=== PATIENT | female | born 1960 | race Caucasian/White ===

== ENCOUNTER → 2016-07-23 | Outpatient (REF) | payer OTHER ==
[2016-07-23 16:29] LABS: BASO % 0.6 % (0.0-1.0); EOS # 0.1 K/mm3 (0.0-0.50); EOS % 2.2 % (0.0-3.0); LYMPH # 1.9 K/mm3 (1.5-4.5); MEAN CORPUSCULAR HEMOGLOBIN 32.9 pg (27.0-33.0); MEAN CORPUSCULAR HGB CONC 31.9 g/dl (32.0-36.5); MEAN CORPUSCULAR VOLUME 103.2 fl (80.0-96.0); MONO # 0.3 K/mm3 (0.0-0.8); MONO % 5.2 % (0.0-5.0); NEUTROPHILS # 3.8 K/mm3 (1.8-7.7); NEUTROPHILS % 61.7 % (36.0-66.0); RED CELL DISTRIBUTION WIDTH 13.2 % (11.5-14.5); WHITE BLOOD COUNT 6.1 K/mm3 (4.0-10.0)
[2016-07-23 16:37] LABS: ALBUMIN 3.9 GM/DL (3.2-5.2); ALKALINE PHOSPHATASE 107 U/L (45-117); ALT/SGPT 33 U/L (12-78); ANION GAP 6 MEQ/L (8-16); AST/SGOT 18 U/L (15-37); BILIRUBIN,TOTAL 0.4 MG/DL (0.2-1.0); BLOOD UREA NITROGEN 23 MG/DL (7-18); CALCIUM LEVEL 9.2 MG/DL (8.5-10.1); CARBON DIOXIDE LEVEL 26 MEQ/L (21-32); CHLORIDE LEVEL 110 MEQ/L (98-107); CHOLESTEROL LEVEL 226 MG/DL (<200); CREATININE FOR GFR 0.86 MG/DL (0.55-1.02); GLOMERULAR FILTRATION RATE > 60.0 (>51); GLUCOSE, FASTING 92 MG/DL (70-105); POTASSIUM SERUM 4.8 MEQ/L (3.5-5.1); SODIUM LEVEL 142 MEQ/L (136-145); TOTAL PROTEIN 6.5 GM/DL (6.4-8.2); TRIGLYCERIDES LEVEL 55 MG/DL (<150)
== END ==
LOC: M LABDRAW1 16:03
PROVIDERS: ATTEND Physician Assistant Medical
DX: E78.00 Pure hypercholesterolemia, unspecified (principal)

== ENCOUNTER → 2016-07-24 | Outpatient (CLI) | payer BC, OTHER ==
--- NOTE | 2016-07-25 09:39 | ECGEPIP ---
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
== END ==
LOC: M EKG 08:58
PROVIDERS: ATTEND Physician Assistant Medical
DX: E78.2 Mixed hyperlipidemia (principal); R94.31 Abnormal electrocardiogram [ECG] [EKG]

== ENCOUNTER → 2016-09-23 | Outpatient (CLI) | payer BC, OTHER ==
[2016-09-23 16:50] LABS: BASO % 0.3 % (0.0-1.0); EOS # 0.1 K/mm3 (0.0-0.50); EOS % 1.7 % (0.0-3.0); LYMPH # 2.3 K/mm3 (1.5-4.5); LYMPH % 37.1 % (24.0-44.0); MEAN CORPUSCULAR HEMOGLOBIN 34.3 pg (27.0-33.0); MEAN CORPUSCULAR VOLUME 100.7 fl (80.0-96.0); MONO # 0.4 K/mm3 (0.0-0.8); MONO % 5.9 % (0.0-5.0); NEUTROPHILS # 3.2 K/mm3 (1.8-7.7); NEUTROPHILS % 52.8 % (36.0-66.0); RED CELL DISTRIBUTION WIDTH 12.8 % (11.5-14.5); WHITE BLOOD COUNT 6.1 K/mm3 (4.0-10.0)
[2016-09-23 19:53] LABS: ALBUMIN/GLOBULIN RATIO 1.38 (1.00-1.93); ALKALINE PHOSPHATASE 105 U/L (45-117); ALT/SGPT 44 U/L (12-78); AMYLASE 44 U/L (25-115); ANION GAP 8 MEQ/L (8-16); AST/SGOT 25 U/L (15-37); BILIRUBIN,TOTAL 0.5 MG/DL (0.2-1.0); BLOOD UREA NITROGEN 16 MG/DL (7-18); CARBON DIOXIDE LEVEL 25 MEQ/L (21-32); CHLORIDE LEVEL 110 MEQ/L (98-107); CREATININE FOR GFR 0.78 MG/DL (0.55-1.02); GLOMERULAR FILTRATION RATE > 60.0 (>51); GLUCOSE, FASTING 76 MG/DL (70-105); POTASSIUM SERUM 3.8 MEQ/L (3.5-5.1); SODIUM LEVEL 143 MEQ/L (136-145); TOTAL PROTEIN 6.9 GM/DL (6.4-8.2)
== END ==
LOC: M LAB 15:28
PROVIDERS: ATTEND Physician Assistant Medical
DX: R10.84 Generalized abdominal pain (principal); R63.5 Abnormal weight gain

== ENCOUNTER → 2016-09-25 | Outpatient (CLI) | payer BC, OTHER ==
--- NOTE | 2016-09-25 09:47 | REP ---
Clinical: Left upper abdominal pain. Technique: Real time marc scale and color evaluation using curved array transducer. Findings: Ultrasound examination of the left upper quadrant demonstrates normal size, contour, echogenicity to the spleen without focal splenic lesion. The bladder is normal in appearance and reniform shape without hydronephrosis, nephrolithiasis, cystic or mass lesion. No ascites visualized in the left upper quadrant. Spleen measures 8.8 x 2.8 x 3.6 cm. Left kidney measures 10.7 x 5.1 x 4.6 cm. Impression: Normal left upper quadrant ultrasound including normal spleen and left kidney. Signed by Isauro Lester MD 09/25/2016 09:39 A
== END ==
LOC: M RAD 08:48
PROVIDERS: ATTEND Physician Assistant Medical
DX: R10.84 Generalized abdominal pain (principal)

== ENCOUNTER → 2016-10-12 | Outpatient (REF) | payer OTHER, BC ==
[2016-10-12 19:34] LABS: TOTAL PROTEIN 6.6 GM/DL (6.4-8.2)
[2016-10-14 00:09] LABS: Lyme Disease IgG/IgM Antibodie <0.91 ISR (0.00-0.90); Lyme Disease IgM Ab Quantitati <0.80 index (0.00-0.79)
[2016-10-14 11:30] LABS: ALBUMIN 4.01 GM/DL (3.29-5.55); ALBUMIN % 60.7 % (55.8-66.1); GAMMA GLOBULIN % 11.2 % (11.1-18.8)
== END ==
LOC: M LABDRAW1 11:18
PROVIDERS: ATTEND Physician Assistant Medical
DX: R10.84 Generalized abdominal pain (principal)

== ENCOUNTER → 2016-10-19 | Outpatient (CLI) | payer BC, OTHER ==
[~2016-10-19] MED LIST: GASTROGRAFIN SOLUTION 30ML (Q9963) As Ordered ONE; ISOVUE-370 76% 100ML VIAL (Q9967) As Ordered ONE
--- NOTE | 2016-10-20 04:50 | REP ---
Clinical: Mid abdominal pain. Technique: Axial contrast enhanced images from the lung bases to the pubic symphysis using oral and 100 ml Isovue 370 intravenous contrast material with coronal and sagittal re-formations. Comparison: None. Findings: A large space-occupying fatty lesion within the abdomen is appreciated extending to the upper pelvis which measures roughly the 18 x 14 x 7.6 cm and contains area of stranding towards the lower aspect of the presumed lesion (images 75 - 90). Findings suggest a mesenteric lipoma and correlation with physical examination and MRI may be warranted. Liver, spleen, pancreas, bilateral adrenal glands and kidneys are normal. Subtle cholelithiasis suggested without CT evidence for acute cholecystitis. The enteric system is without obstruction or acute inflammatory process. Scattered sigmoid diverticula noted without acute diverticulitis. Pelvis demonstrates collapsed normal bladder and evidence for prior hysterectomy. No pelvic fluid or ascites. No free air. No adenopathy. Vasculature appears normal. Surrounding musculoskeletal structures are intact. Impression: Space-occupying fat containing lesion suggested within the abdomen and upper pelvis most compatible with as intact lipoma. Signed by Isauro Lester MD 10/20/2016 04:41 A
== END ==
LOC: M RAD 13:44
PROVIDERS: ATTEND Physician Assistant Medical
DX: R10.84 Generalized abdominal pain (principal)
CPT/HCPCS: 74178; Q9963; Q9967

== ENCOUNTER 2016-10-30 08:18 | Emergency (ER) | payer BC, OTHER ==
[~2016-10-30] VITALS: Ht 157.5 cm; Wt 83.6 kg
[2016-10-30] MEDS ORDERED: CITA20TA4 PO (08:29)
[2016-10-30] MEDS ORDERED: CVS20TAB PO (08:29)
[2016-10-30] MEDS ORDERED: ATOR40TA75 PO (08:29)
[2016-10-30] MEDS ORDERED: PRED1SOL3 OD (08:29)
[2016-10-30] MEDS ORDERED: ONDANSETRON 4MG/2ML VIAL (J2405) IV ONE (09:00)
[2016-10-30] MEDS ORDERED: MORPHINE 4 MG/ML 1ML SYRINGE IV ONE (09:00)
[2016-10-30 09:27] LABS: BASO # 0.1 K/mm3 (0.0-0.2); BASO % 2.2 % (0.0-1.0); EOS # 0.1 K/mm3 (0.0-0.50); LARGE UNSTAINED CELL # 0.2 K/mm3 (0.0-0.4); LARGE UNSTAINED CELL % 2.7 % (0.0-4.0); LYMPH # 1.8 K/mm3 (1.5-4.5); LYMPH % 27.8 % (24.0-44.0); MEAN CORPUSCULAR HEMOGLOBIN 33.8 pg (27.0-33.0); MEAN CORPUSCULAR HGB CONC 33.9 g/dl (32.0-36.5); MEAN CORPUSCULAR VOLUME 99.5 fl (80.0-96.0); MONO # 0.4 K/mm3 (0.0-0.8); MONO % 5.2 % (0.0-5.0); NEUTROPHILS % 60.2 % (36.0-66.0); PLATELET COUNT, AUTOMATED 154 k/mm3 (150-450); RED CELL DISTRIBUTION WIDTH 12.3 % (11.5-14.5); WHITE BLOOD COUNT 6.6 K/mm3 (4.0-10.0)
[2016-10-30 10:22] LABS: ALBUMIN 3.7 GM/DL (3.2-5.2); ALBUMIN/GLOBULIN RATIO 1.42 (1.00-1.93); ALKALINE PHOSPHATASE 103 U/L (45-117); ALT/SGPT 42 U/L (12-78); AMYLASE 80 U/L (25-115); ANION GAP 7 MEQ/L (8-16); AST/SGOT 24 U/L (15-37); BILIRUBIN,DIRECT 0.1 MG/DL (0.0-0.2); BILIRUBIN,TOTAL 0.5 MG/DL (0.2-1.0); BLOOD UREA NITROGEN 18 MG/DL (7-18); CALCIUM LEVEL 8.8 MG/DL (8.5-10.1); CARBON DIOXIDE LEVEL 26 MEQ/L (21-32); CHLORIDE LEVEL 110 MEQ/L (98-107); CREATININE FOR GFR 0.74 MG/DL (0.55-1.02); GLOMERULAR FILTRATION RATE > 60.0 (>51); GLUCOSE, FASTING 98 MG/DL (70-105); SODIUM LEVEL 143 MEQ/L (136-145); TOTAL PROTEIN 6.3 GM/DL (6.4-8.2)
--- NOTE | 2016-10-30 15:20 | REP ---
MRI study of the abdomen without and with IV gadolinium: History: Question mesenteric lipoma. Comparison is made with today's CT study. Prior MRI pelvic images are reviewed from August 24, 2005. Technique: Axial and coronal T1 and T2-weighted scans were obtained. Sequences include TRUE FISP, spin echo, turbo spin-echo, 2-D gradient echo sequences. Post gadolinium enhanced images are included. The gadolinium enhancement dose is 16.6 mL of intravenous ProHance. MRI findings: The study confirms the presence of a large predominately fat containing mass in the abdomen centered within the region of the greater omentum just to the left of midline. This extends posterior to the stomach and superior to the stomach as well. The lesion extends from the diaphragm to the downward displaced transverse colon below the level of the umbilicus. The lesion is almost entirely homogeneous normal appearing fat density material, however, there are some areas of irregular soft tissue contents centrally in the epigastric region at the superior margin of the mass and scattered about the mid portion of the mass as well as in a larger area of the lower portion of the otherwise fatty mass lesion. The largest of these soft tissue components measures 5.0 cm in greatest diameter. Postcontrast images show mild enhancement in these components. Overall, the lesion measures up to 26 cm in craniocaudal span by 19 cm medial to lateral by up to 9.2 cm in anteroposterior dimension. There is no evidence of retroperitoneal adenopathy. No hepatic or splenic lesion is seen. No pancreatic adrenal or significant renal lesion is observed. The gallbladder is unremarkable. Impression: Very large intra-abdominal fat containing mass with some soft tissue enhancing elements. 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 Signed by Rob Espinosa MD 10/30/2016 05:14 P
[2016-10-30] MEDS ORDERED: PERCOCET 5MG/325MG TAB PO ONE (15:30)
[2016-10-30] MEDS ORDERED: PERC5TAB12 PO (15:35)
[2016-10-30 16:04] VITALS: BP 153/88
--- NOTE | 2016-10-31 07:19 | ECGEPIP ---
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
== END 2016-10-30 16:06 | disposition home or self-care (01) ==
LOC: M ED 08:18
DX: C49.9 Malignant neoplasm of connective and soft tissue, unspecified (principal); R93.2 Abnormal findings on diagnostic imaging of liver and biliary tract; E78.00 Pure hypercholesterolemia, unspecified; F32.9 Major depressive disorder, single episode, unspecified; Z96.1 Presence of intraocular lens; Z79.899 Other long term (current) drug therapy; Z88.5 Allergy status to narcotic agent; Z88.8 Allergy status to other drugs, medicaments and biological substances
CPT/HCPCS: 36415; 72197; 74183; 80048; 80076; 82150; 83690; 85025; 93005; 96374; 96375; 99284; A9576; J2405

== ENCOUNTER → 2016-12-07 | Outpatient (CLI) | payer BC, OTHER ==
[~2016-12-07] MED LIST changes: +ATOR40TA75 PO; +CITA20TA4 PO; +CVS20TAB PO; -GASTROGRAFIN SOLUTION 30ML (Q9963) As Ordered ONE; -ISOVUE-370 76% 100ML VIAL (Q9967) As Ordered ONE; +PERC5TAB12 PO; +PRED1SOL3 OD
[2016-12-07 15:57] LABS: ALBUMIN 3.9 GM/DL (3.2-5.2); ALKALINE PHOSPHATASE 104 U/L (45-117); ALT/SGPT 34 U/L (12-78); ANION GAP 5 MEQ/L (8-16); AST/SGOT 18 U/L (15-37); BILIRUBIN,TOTAL 0.6 MG/DL (0.2-1.0); BLOOD UREA NITROGEN 21 MG/DL (7-18); CALCIUM LEVEL 9.6 MG/DL (8.5-10.1); CARBON DIOXIDE LEVEL 30 MEQ/L (21-32); CHLORIDE LEVEL 108 MEQ/L (98-107); CREATININE FOR GFR 0.79 MG/DL (0.55-1.02); GLOMERULAR FILTRATION RATE > 60.0 (>51); GLUCOSE, FASTING 86 MG/DL (70-105); POTASSIUM SERUM 4.2 MEQ/L (3.5-5.1); SODIUM LEVEL 143 MEQ/L (136-145); TOTAL PROTEIN 6.9 GM/DL (6.4-8.2)
[2016-12-07 16:15] LABS: INR 0.97
[2016-12-07 16:22] LABS: BASO % 0.8 % (0.0-1.0); EOS # 0.1 K/mm3 (0.0-0.50); EOS % 1.4 % (0.0-3.0); LYMPH % 33.5 % (24.0-44.0); MEAN CORPUSCULAR HEMOGLOBIN 33.1 pg (27.0-33.0); MEAN CORPUSCULAR HGB CONC 33.4 g/dl (32.0-36.5); MEAN CORPUSCULAR VOLUME 99.1 fl (80.0-96.0); MONO # 0.3 K/mm3 (0.0-0.8); MONO % 4.9 % (0.0-5.0); NEUTROPHILS # 3.3 K/mm3 (1.8-7.7); NEUTROPHILS % 57.7 % (36.0-66.0); RED CELL DISTRIBUTION WIDTH 12.9 % (11.5-14.5); WHITE BLOOD COUNT 5.7 K/mm3 (4.0-10.0)
--- NOTE | 2016-12-08 08:42 | REP ---
Chest two views HISTORY: Gastrointestinal tumor Comparison: 06/15/2013 A calcified granuloma is present in the lingula. The right lung is clear. The heart is normal in size. The pulmonary vasculature is normal in appearance. The bony structure is intact. IMPRESSION: Old granulomatous disease. Signed by Be Osborn MD 12/07/2016 03:48 P
--- NOTE | 2016-12-09 21:49 | ECGEPIP ---
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
== END ==
LOC: M LAB 14:36
PROVIDERS: ATTEND Physician Assistant Medical
DX: C49.A0 Gastrointestinal stromal tumor, unspecified site (principal)

== ENCOUNTER → 2017-05-01 | Outpatient (CLI) | payer BC, OTHER | LOC: M WUC 10:13 | DX: S60.212A Contusion of left wrist, initial encounter (principal); X58.XXXA Exposure to other specified factors, initial encounter; Y92.89 Other specified places as the place of occurrence of the external cause; Y93.89 Activity, other specified; Y99.8 Other external cause status | CPT/HCPCS: 73110 ==

== ENCOUNTER 2018-01-26 20:52 | Emergency (ER) | payer BC, OTHER | END 2018-01-26 23:32 | disposition home or self-care (01) | LOC: M ED 20:52 | DX: K11.5 Sialolithiasis (principal); K21.9 Gastro-esophageal reflux disease without esophagitis; F41.9 Anxiety disorder, unspecified; F32.9 Major depressive disorder, single episode, unspecified; F17.200 Nicotine dependence, unspecified, uncomplicated; Z88.8 Allergy status to other drugs, medicaments and biological substances; Z88.5 Allergy status to narcotic agent | CPT/HCPCS: 87880 ==

== ENCOUNTER → 2018-03-03 | Outpatient (REF) | payer OTHER ==
[2018-03-03 12:08] LABS: HEMATOCRIT 48.1 % (36.0-47.0); HEMOGLOBIN 15.7 g/dl (12.0-15.5); MEAN CORPUSCULAR HEMOGLOBIN 33.5 pg (27.0-33.0); MEAN CORPUSCULAR HGB CONC 32.6 g/dl (32.0-36.5); MEAN CORPUSCULAR VOLUME 102.8 fl (80.0-96.0); PLATELET COUNT, AUTOMATED 166 10^3/uL (150-450); RED BLOOD COUNT 4.68 10^6/uL (4.00-5.40); RED CELL DISTRIBUTION WIDTH 13.7 % (11.5-14.5); WHITE BLOOD COUNT 6.7 10^3/uL (4.0-10.0)
[2018-03-03 12:48] LABS: ALBUMIN 3.6 GM/DL (3.2-5.2); ALBUMIN/GLOBULIN RATIO 1.13 (1.00-1.93); ALKALINE PHOSPHATASE 111 U/L (45-117); ALT/SGPT 31 U/L (12-78); ANION GAP 11 MEQ/L (8-16); AST/SGOT 19 U/L (7-37); BILIRUBIN,TOTAL 0.3 MG/DL (0.2-1.0); BLOOD UREA NITROGEN 19 MG/DL (7-18); CALCIUM LEVEL 9.2 MG/DL (8.5-10.1); CARBON DIOXIDE LEVEL 23 MEQ/L (21-32); CHLORIDE LEVEL 111 MEQ/L (98-107); CHOLESTEROL LEVEL 260 MG/DL (<200); CHOLESTEROL RISK RATIO 3.561 (<5); CREATININE FOR GFR 0.78 MG/DL (0.55-1.30); FREE T4 0.94 NG/DL (0.76-1.46); GLOMERULAR FILTRATION RATE > 60.0 (>51); GLUCOSE, FASTING 105 MG/DL (70-100); HDL CHOLESTEROL 73 MG/DL (>40); LDL CHOLESTEROL 161 MG/DL (<100); NON-HDL-C 187 MG/DL; POTASSIUM SERUM 4.4 MEQ/L (3.5-5.1); SODIUM LEVEL 145 MEQ/L (136-145); TOTAL 25(OH) VITAMIN D 34.1 NG/ML (30.0-100.0); TOTAL PROTEIN 6.8 GM/DL (6.4-8.2); TRIGLYCERIDES LEVEL 131 MG/DL (<150)
== END ==
LOC: M SFHCPLAZ 08:30
DX: E78.49 Other hyperlipidemia (principal); Z78.0 Asymptomatic menopausal state

== ENCOUNTER → 2018-03-14 | Outpatient (CLI) | payer BC | LOC: M WHC 11:27 | DX: Z12.31 Encounter for screening mammogram for malignant neoplasm of breast (principal); Z78.0 Asymptomatic menopausal state; M85.851 Other specified disorders of bone density and structure, right thigh | CPT/HCPCS: 77067 ==

== ENCOUNTER → 2018-03-31 | Outpatient (REF) | payer OTHER ==
[2018-03-31 12:06] LABS: TOTAL PROTEIN 6.8 GM/DL (6.4-8.2)
[2018-03-31 12:15] LABS: FOLATE 13.8 NG/ML (>5.4); VITAMIN B12 LEVEL 429 PG/ML (247-911)
[2018-04-01 11:39] LABS: ALBUMIN 4.18 GM/DL (3.29-5.55); ALBUMIN % 61.5 % (55.8-66.1); ALPHA-1-GLOBULIN % 4.8 % (2.9-4.9); ALPHA-1-GLOBULINS 0.33 GM/DL (0.17-0.41); ALPHA-2-GLOBULINS 0.78 GM/DL (0.42-0.99); ALPHA-2-GLOBULINS % 11.4 % (7.1-11.8); BETA-1-GLOBULINS 0.42 GM/DL (0.28-0.60); BETA-1-GLOBULINS % 6.2 % (4.7-7.2); BETA-2-GLOBULINS 0.36 GM/DL (0.19-0.55); BETA-2-GLOBULINS % 5.3 % (3.2-6.5); GAMMA GLOBULIN % 10.8 % (11.1-18.8); GAMMA GLOBULINS 0.73 GM/DL (0.65-1.58)
[2018-04-02 00:57] LABS: FREE KAPPA LIGHT CHAINS SERUM 14.1 mg/L (3.3-19.4); FREE LAMBDA LIGHT CHAINS SERUM 16.9 mg/L (5.7-26.3); KAPPA/LAMBDA RATIO SERUM 0.83 (0.26-1.65)
== END ==
LOC: M SFHCPLAZ 10:28
DX: D75.89 Other specified diseases of blood and blood-forming organs (principal); D58.2 Other hemoglobinopathies

== ENCOUNTER → 2018-04-07 | Outpatient (CLI) | payer BC, OTHER ==
[~2018-04-07] MED LIST changes: -ATOR40TA75 PO; -CITA20TA4 PO; -CVS20TAB PO; +GASTROGRAFIN SOLUTION 30ML (Q9963) As Ordered; +ISOVUE-370 76% 100ML VIAL (Q9967) As Ordered; -PERC5TAB12 PO; -PRED1SOL3 OD
== END ==
LOC: M RAD 11:47
DX: R19.00 Intra-abdominal and pelvic swelling, mass and lump, unspecified site (principal); C49.9 Malignant neoplasm of connective and soft tissue, unspecified; K43.9 Ventral hernia without obstruction or gangrene; K76.0 Fatty (change of) liver, not elsewhere classified
CPT/HCPCS: Q9963

== ENCOUNTER → 2018-04-18 | Outpatient (REF) | payer OTHER ==
[~2018-04-18] MED LIST changes: +ATOR40TA75 PO; +CITA20TA4 PO; +CVS20TAB PO; -GASTROGRAFIN SOLUTION 30ML (Q9963) As Ordered; -ISOVUE-370 76% 100ML VIAL (Q9967) As Ordered; +PERC5TAB12 PO; +PRED1SOL3 OD
[2018-04-21 10:40] LABS: TOTAL PROTEIN,RANDOM URINE 12.1 MG/DL (0.0-12.0)
== END ==
LOC: M SFHCADAM 10:10
PROVIDERS: ATTEND Physician Assistant
DX: D80.1 Nonfamilial hypogammaglobulinemia (principal)

== ENCOUNTER 2018-05-23 08:24 | Day surgery (SDC) | payer BC, OTHER ==
[~2018-05-23] VITALS: Ht 157.5 cm; Wt 91.6 kg
[~2018-05-23 08:24] MED LIST changes: +CYCL5TAB PO; +LR 1,000 ML IV ONE; +OMEP20CA3 PO; +SENN8.6T17 PO
[2018-05-23] MEDS ORDERED: LIDOCAINE 2% INJ 100 MG/5 ML SDV (FOR ANES.) As Ordered ONE (09:30)
[2018-05-23] MEDS ORDERED: PROPOFOL 200 MG/20 ML VIAL As Ordered ONE (09:30)
[2018-05-23] MEDS ORDERED: ONDANSETRON 4MG/2ML VIAL (J2405) As Ordered ONE (09:30)
[2018-05-23] MEDS ORDERED: MIDAZOLAM INJ 2 MG/2 ML VIAL (J2250) As Ordered ONE (09:30)
[2018-05-23] MEDS ORDERED: dexameTHASONE 4 MG/ML 1ML VIAL (J1100) As Ordered ONE (09:30)
[2018-05-23] MEDS ORDERED: KETOROLAC 60 MG/2 ML VIAL (J1885) As Ordered ONE (09:30)
[2018-05-23] MEDS ORDERED: fentaNYL 250 MCG/5 ML INJECTION (J3010) As Ordered ONE (09:30)
[2018-05-23] MEDS ORDERED: ROCURONIUM BROMIDE 50 MG/5 ML VIAL As Ordered ONE (09:31)
[2018-05-23] MEDS ORDERED: BUPIVACAINE/EPIN 0.25% 30 ML VIAL As Ordered ONE (09:41)
[2018-05-23] MEDS ORDERED: SUGAMMADEX SODIUM 500 MG/5 ML VIAL (BRIDION) As Ordered ONE (10:41)
[2018-05-23] MEDS ORDERED: LABETALOL HCL 100 MG/20 ML VIAL As Ordered ONE (11:02)
[2018-05-23] MEDS ORDERED: ESMOLOL INJ 100MG/10ML VIAL As Ordered ONE (11:03)
[2018-05-23] MEDS ORDERED: NORCO, ANEXSIA 5/325MG TABLET (HYDROcodone/ACETAMINOPHEN) PO PRN (11:30)
[2018-05-23] MEDS ORDERED: ONDANSETRON 4MG/2ML VIAL (J2405) IV PRN (11:30)
[2018-05-23] MEDS ORDERED: MORPHINE 10 MG/ML 1ML VIAL (J2270) IV PRN (11:30)
[2018-05-23] MEDS ORDERED: PERCOCET 5MG/325MG TAB PO PRN (11:30)
[2018-05-23] MEDS ORDERED: fentaNYL 100 MCG/2 ML INJECTION (J3010) IV PRN (11:30)
[2018-05-23] MEDS ORDERED: LR 1,000 ML IV SCH (11:30)
[2018-05-23 14:10] VITALS: BP 140/74
--- NOTE | 2018-05-24 10:05 | RO ---
DATE OF PROCEDURE: 05/23/2018 PREOPERATIVE DIAGNOSIS: Incisional hernia. POSTOPERATIVE DIAGNOSIS: Incisional hernia. PROCEDURE: Laparoscopic lysis of adhesions. SURGEON: Dr. Gaytan VIDEO AND SOUND RECORDER: Dr. Mackay ANESTHESIA: General. ESTIMATED BLOOD LOSS: 5 mL. COMPLICATIONS: None. INDICATIONS FOR PROCEDURE: The patient 57-year-old female who presents with pain around her umbilicus with an incisional hernia identified on CT scan and palpable lump on physical exam. Recommendations to proceed with laparoscopic, possible open repair. Risks and benefits of procedure, not limited to, but including bleeding, infection, hernia formation, hernia recurrence, damage to surrounding structures, need for further surgery were discussed in detail with the patient. Informed consent was obtained and the procedure was planned. PROCEDURE: The patient was brought back to operating room #1. After sufficient sedation, the abdomen was sterilely prepped and draped. Next, a time out was done to confirm proper patient and proper procedure. Following that, a 5 mm incision was made in the left upper quadrant, Veress needle inserted and the abdomen was insufflated to 15 mmHg. Next, a 5 mm Optiview port was used to gain access to the abdomen. The abdomen was entered. There were extensive adhesions throughout the entire center of the abdomen. However, I was able to see down the left side and place another 5 mm port there. Next, Enseal was used to carefully take down all the adhesions. Once that was completed, there is a diastasis of the entire midline abdominal incision from her previous laparotomy. There were no individual lesions that could easily be repaired laparoscopically due to the entire midline being vaulted. After careful consideration, decision was to close and avoid placing any mesh. Postoperatively, I discussed with her significant other and I will discuss with her when she wakes up about the possibility of needing a component separation in the future if the lysis of adhesions did not Improve her pains. Therefore, the abdomen was cleaned and dried and the incisions were closed with subcuticular #4-0 Vicryl sutures. Steri-Strips, 2 x 2, and tape were applied, thus ending procedure. MAX
== END 2018-05-23 14:22 | disposition home or self-care (01) ==
LOC: M SDC 08:24
PROVIDERS: ATTEND Surgery
DX: N73.6 Female pelvic peritoneal adhesions (postinfective) (principal); M62.08 Separation of muscle (nontraumatic), other site; K43.0 Incisional hernia with obstruction, without gangrene; E78.00 Pure hypercholesterolemia, unspecified; K21.9 Gastro-esophageal reflux disease without esophagitis; M54.5 Low back pain; Z88.5 Allergy status to narcotic agent; Z88.8 Allergy status to other drugs, medicaments and biological substances; Z90.710 Acquired absence of both cervix and uterus; Z87.891 Personal history of nicotine dependence
CPT/HCPCS: 58660; J0690; J1100; J1885; J2250; J2405; J3010

== ENCOUNTER 2018-09-21 17:11 | Observation (INO) | payer BC, OTHER ==
[~2018-09-21] VITALS: Ht 157.5 cm; Wt 98.5 kg
[~2018-09-21 17:11] MED LIST changes: -CITA20TA4 PO; +CITA20TA6 PO; -CVS20TAB PO; -LR 1,000 ML IV ONE; +OMEP20TA9 PO
--- NOTE | 2018-09-21 18:00 | REP ---
Clinical: Trauma/injury . Comparison: None . Findings: The ventricles, sulci, and cisterns are normal in position and appearance. Rivers-white differentiation is maintained. No acute intracranial hemorrhage, mass/mass effect, pathology or trauma/injury. No evidence for acute infarction. No extra-axial fluid collection. Calvarium is intact. Paranasal sinuses and mastoid air cells are clear. Impression: Normal noncontrast head CT. No evidence for acute intracranial pathology or trauma/injury. Electronically Signed by Isauro Lester MD 09/21/2018 05:52 P
--- NOTE | 2018-09-21 18:02 | REP ---
Clinical: Trauma/injury. Technique: Axial noncontrast images from the skull base to the thoracic inlet with coronal and sagittal re-formations. Findings: Moderate/advanced multilevel degenerative disc osteophyte complexes are appreciated. Alignment and lordosis maintained. No acute fracture / compression injury or subluxation. Spinal canal is patent. Posterior elements and spinous processes are intact. Paravertebral soft tissues are normal. Impression: Moderate/early advanced multilevel degenerative spondylosis. No acute cervical trauma/injury appreciated. Electronically Signed by Isauro Lester MD 09/21/2018 05:54 P
[2018-09-21] MEDS ORDERED: METOCLOPRAMIDE 10 MG TAB PO ONE (20:45)
[2018-09-21] MEDS ORDERED: ACETAMINOPHEN 500 MG TAB PO ONE (20:45)
[2018-09-21] MEDS ORDERED: NS 1,000 ML IV ONE (20:45)
[2018-09-21] MEDS ORDERED: SENN1TAB8 PO (22:29)
[2018-09-22] MEDS ORDERED: OMEPRAZOLE 20 MG CAP PO PRN (00:15)
[2018-09-22] MEDS ORDERED: SENNA 8.6 MG TAB (SENOKOT) PO PRN (00:15)
--- NOTE | 2018-09-22 01:04 | HPEPDOC ---
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 Patient states that approximately 1500 this afternoon she was on a concrete platform in front of her house where she slipped and fell backwards hitting her head on what she believes to be a small rock located on the concrete slab. She also reports grazing her head against an adjacent wooden deck. She denies any loss of consciousness. Mechanical fall was unwitnessed. Patient was able to slowly rise In the emergency department, a CT was performed of the patient's head which did not indicate any acute abnormalities or intracranial bleeds. Imaging of the patient's cervical spine was also performed and negative for any acute injury. 1 L saline bolus was given. 1000 mg of Tylenol also given for pain control with good relief. Hospitalist team was contacted to admit the patient and observe overnight with a repeat CT in the morning to assess for further evidence of intracranial injury. PAST MEDICAL HISTORY: GERD Hyperlipidemia History of abdominal liposarcoma, s/p removal Chronic neck and low back pain History of ventral hernia with loops of small bowel, status post repair PAST SURGICAL HISTORY: Partial hysterectomy, 1996 Cataract surgery right eye, 2006 Liposarcoma removal of the abdomen, 2016 Fusion of L5, 2000 SOCIAL HISTORY: Tobacco use: Current smoker ETOH: Patient currently reports alcohol use for more times per week IV drug use: Patient denies any IV drug use FAMILY HISTORY: Father: Mother: Alive, diagnosed hypertension Siblings: 3 brothers, 2 sisters, Patient reports family history of cancer, unknown type ALLERGIES: Neurontin, altered mental status Toradol, altered mental status REVIEW OF SYSTEMS: CONSTITUTIONAL: Patient denies any recent subjective fevers, chills, night sweats, changes in weight or generalized fatigue HEENT: Patient reports 3 at 10 headache in the right parietal/occipital region, greatly improved since presentation. Pain is described as an ache. Patient reports that her vision was initially a slightly blurry immediately after impact , however, this seemingly resolved prior to presentation emergency department. Patient also reports subjective dizziness upon standing from a seated position. CARDIOVASCULAR: Denies any chest pain/pressure, no palpitations RESPIRATORY: Denies any difficulty breathing, wheezing, cough GASTROINTESTINAL: Patient denies any nausea or vomiting after impact, no GI upset constipation or diarrhea GENITOURINARY: No difficulty urinating SKIN: Patient does report a laceration posterior auricular where she states she grazed her wooden deck when she fell. Abrasions also noted on patient's right lower lateral leg MUSCULOSKELETAL: Patient reports chronic back pain, unchanged this time NEUROLOGICAL: Patient denies any focal neurologic deficits, including numbness or tingling, weakness, difficulty finding words or confusion HOME MEDICATIONS: Please see below. PHYSICAL EXAMINATION: VITAL SIGNS: Please see below GENERAL APPEARANCE: Patient is interviewed and examined in the emergency department. Patient was found to be laying comfortably in her bed with the lights dimmed, that her own clothing. Patient was in no acute distress or discomfort. She was able to answer questions appropriately actively participate in her care. HEENT: Examination of the patient's calvarium did demonstrate a welt approximately 3-1/2 cm in diameter located right posterior parietal region. EOMI. PERRLA CARDIOVASCULAR: Regular rate and rhythm, normal S1 and S2 no murmurs appreciated LUNGS: Clear to auscultation bilaterally, free of any wheezing rales or rhonchi ABDOMEN: Soft, nontender, nondistended, no guarding appreciated, obese EXTREMITIES: Patient does have an abrasion located on the lateral aspect of her right lower leg. Patient is able to move all extremities equally bilaterally. No calf-tenderness appreciated. NEUROLOGICAL: Patient is awake and alert, oriented 3. She does not demonstrate any focal neurologic deficits. Speech is normal in rate, tone and possibly. Blurry vision has resolved, patient is conversant. Diagnosed testing is negative. Negative for dysdiadochokinesia. PSYCHIATRIC: Mood and affect are appropriate given patient's current medical condition LABORATORY DATA: See below. IMAGING: Cervical spine CT (09/21/18): Moderate/early advanced multilevel degenerative spondylosis. No acute cervical trauma/injury appreciated Head CT (09/21/18): Normal noncontrast head CT. No evidence of acute intracranial pathology or trauma/injury. ASSESSMENT: Patient is a 57-year-old white female who presents emergency department after sustaining a mechanical fall and hitting right parieto-occipital region of her head on a concrete slab. Patient was initially seen by urgent care and subsequently told to present emergent department. A stinging and imaging of the patient's head and C-spine were negative for any acute pathology. Hospitalist team was contacted to admit the patient and observe overnight with a repeat CT in the morning to assess for further evidence of intracranial injury. PLAN: Right-sided cranial contusion -CT performed emergency department was negative for any acute intracranial abnormality or bleed -Plan for repeat CT in the morning -Neuro checks every 4 hours -Orthostatic vital signs -Tylenol when necessary for pain control GERD -Continue home omeprazole Chronic neck and back pain -Hold home muscle relaxer DVT prophylaxis: Tetanus and sequentials Vital Signs Vital Signs Date Time Temp Pulse Resp B/P (MAP) Pulse Ox O2 Delivery O2 Flow Rate FiO2 09/21/18 17:32 09/21/18 17:12 98.0 77 20 96 Room Air Home Medications Scheduled PRN Cyclobenzaprine HCl (Cyclobenzaprine HCl) 5 Mg Tab, 5 MG PO BID PRN for MUSCLE SPASMS Omeprazole (Omeprazole) 20 Mg Cap, 20 MG PO DAILY PRN for ACID REFLUX Sennosides (Senna) 8.6 Mg Tablet, 8.6 MG PO BID PRN for CONSTIPATION Allergies Coded Allergies: gabapentin (Verified Allergy, Unknown, 09/21/18) tramadol (Verified Allergy, Unknown, 09/21/18) A-FIB/CHADSVASC A-FIB History Current/History of A-Fib/PAF?: No GME ATTESTATION GME ATTESTATION My faculty preceptor for this patient encounter was physically present during the encounter and was fully available. All aspects of the patient interview, examination, medical decision making process, and medical care plan development were reviewed and approved by the faculty preceptor. The faculty preceptor is aware and concurs with the plan as stated in the body of this note and will attest to such by his/her cosignature. DIMITRY BRAGG DO September 22, 2018 01:04
[2018-09-22] MEDS ORDERED: ACETAMINOPHEN TAB 650MG DOSE (2X325MG) PO PRN (01:45)
[2018-09-22 02:30] VITALS: BP_SYST 138; BP_SYST 160; BP_SYST 171; BP_DIAS 85; BP_DIAS 93; BP_DIAS 99
[2018-09-22 05:27] LABS: ALBUMIN 3.4 GM/DL (3.2-5.2); ALT/SGPT 32 U/L (12-78); BILIRUBIN,TOTAL 0.5 MG/DL (0.2-1.0); BLOOD UREA NITROGEN 14 MG/DL (7-18); CALCIUM LEVEL 8.9 MG/DL (8.5-10.1); CARBON DIOXIDE LEVEL 25 MEQ/L (21-32); CHLORIDE LEVEL 109 MEQ/L (98-107); GLOMERULAR FILTRATION RATE > 60.0 (>51); GLUCOSE, FASTING 103 MG/DL (70-100); POTASSIUM SERUM 3.4 MEQ/L (3.5-5.1); SODIUM LEVEL 142 MEQ/L (136-145); TOTAL PROTEIN 6.3 GM/DL (6.4-8.2)
[2018-09-22 07:30] VITALS: BP 132/90
--- NOTE | 2018-09-22 08:17 | REP ---
Clinical: Head injury . Comparison: 09/21/2018 . Findings: The ventricles, sulci, and cisterns are normal in position and appearance. Rivers-white differentiation is maintained. No acute intracranial hemorrhage, mass/mass effect, pathology or trauma/injury. No evidence for acute infarction. No extra-axial fluid collection. Calvarium is intact. Paranasal sinuses and mastoid air cells are clear. Impression: Normal noncontrast head CT. No evidence for acute intracranial pathology or trauma/injury. Electronically Signed by Isauro Lester MD 09/22/2018 08:09 A
[2018-09-22] MEDS ORDERED: POTASSIUM CHLORIDE 10 MEQ SR TABLET PO ONE (11:00)
--- NOTE | 2018-09-22 14:46 | DS.PDOC ---
Discharge Summary General Date of Admission September 21, 2018 at 23:39 Date of Discharge 09/22/2018 Discharge Summary PROCEDURES PERFORMED DURING STAY: [None]. ADMITTING DIAGNOSES / DISCHARGE DIAGNOSES: Fall with symptoms of vertigo - evaluate for possible concussion and possible contusion Chronic neck and low back pain DLP History of abdominal liposarcoma, s/p removal History of ventral hernia with loops of small bowel, status post repair GERD COMPLICATIONS/CHIEF COMPLAINT: Fall and dizziness HISTORY OF PRESENT ILLNESS / HOSPITAL COURSE: Patient is a 57-year-old white female who presents to the emergency department from urgent care with a past medical history is in for GERD, hyperlipidemia, abd ominal liposarcoma S/be removal, chronic neck and low back pain and ventral hernia S/P repair, with a chief complaint of head injury. Patient states that approximately 1500 this afternoon she was on a concrete platform in front of her house where she slipped and fell backwards hitting her head on what she believes to be a small rock located on the concrete slab. She also reports grazing her head against an adjacent wooden deck. She denies any loss of consciousness. Mechanical fall was unwitnessed. Patient was able to slowly rise. Patient was placed on hospitalist service as an observation for further evaluation and treatment. Patient remained in the hospital and received [address] imaging of her head. All imaging has been negative for any acute findings. Patient's symptoms of dizziness have completely resolved. This morning she has worked with physical therapy has been cleared for discharge home. Patient denies any significant pain. She reports that Tylenol is enough to alleviate her symptoms. Patient will be following up with Dr. Jake Ibanez within 7 days. DISCHARGE MEDICATIONS: Please see below. ALLERGIES: Please see below. PHYSICAL EXAMINATION ON DISCHARGE: Vitals (See below) General: Lying in bed, no acute distress, comfortable, AAOx3 HEENT: NC, AT CVS: RRR, +S1S2 Lungs: Fair air entry b/l, no wheezing / rhonchi / rales Abdomen: Soft, ND, NT Extremities: - Edema, - Calf tenderness Neuro: No focal neurologic deficits LABORATORY DATA: Please see below. ACTIVITY: [As tolerated]. DISCHARGE PLAN: Follow up with Dr. Tl Ibanez within 7 days Remain compliant with treatment plan and medications Return to the ER if you experience any problems DISPOSITION: Home, Self-Care. DISCHARGE CONDITION: [Stable]. TIME SPENT ON DISCHARGE: 31 minutes Vital Signs/I&Os Vital Signs Date Time Temp Pulse Resp B/P (MAP) Pulse Ox O2 Delivery O2 Flow Rate FiO2 09/22/18 07:30 97.9 80 16 132/90 (104) 95 09/22/18 02:23 Room Air I&O- Last 24 Hours up to 6 AM 09/22/18 06:00 Intake Total 1000 ml Balance 1000 ml Laboratory Data Labs 24H Laboratory Tests 2 09/22/18 04:35: Anion Gap 8, Glomerular Filtration Rate > 60.0, Blood Urea Nitrogen 14, Creatinine 0.70, Sodium Level 142, Potassium Level 3.4L, Chloride Level 109H, Carbon Dioxide Level 25, Calcium Level 8.9, Aspartate Amino Transf (AST/SGOT) 21, Alanine Aminotransferase (ALT/SGPT) 32, Alkaline Phosphatase 93, Total Bilirubin 0.5, Total Protein 6.3L, Albumin 3.4, Albumin/Globulin Ratio 1.17 CBC/BMP Laboratory Tests 09/22/18 04:35 Calcium Level 8.9, Aspartate Amino Transf (AST/SGOT) 21, Alanine Aminotransferase (ALT/SGPT) 32, Alkaline Phosphatase 93, Total Bilirubin 0.5, Total Protein 6.3 L, Albumin 3.4 Discharge Medications Scheduled PRN Cyclobenzaprine HCl (Cyclobenzaprine HCl) 5 Mg Tab, 5 MG PO BID PRN for MUSCLE SPASMS, (Reported) Omeprazole (Omeprazole) 20 Mg Cap, 20 MG PO DAILY PRN for ACID REFLUX, (Reported) Sennosides (Senna) 8.6 Mg Tablet, 8.6 MG PO BID PRN for CONSTIPATION, (Reported) Allergies Coded Allergies: gabapentin (Verified Allergy, Unknown, 09/21/18) tramadol (Verified Allergy, Unknown, 09/21/18) KANCHAN TURCIOS MD September 22, 2018 14:46
== END 2018-09-22 11:46 | disposition home or self-care (01) ==
LOC: M ED 17:11 → M ED INP 23:39 → M PCU 09-22 02:28 → M MS4PR 09-22 07:26
PROVIDERS: ADMIT Internal Medicine Nephrology; ATTEND Internal Medicine Nephrology
DX: R29.6 Repeated falls (principal); R42 Dizziness and giddiness; M47.812 Spondylosis without myelopathy or radiculopathy, cervical region; M54.5 Low back pain; E78.5 Hyperlipidemia, unspecified; K21.9 Gastro-esophageal reflux disease without esophagitis; W01.198A Fall on same level from slipping, tripping and stumbling with subsequent striking against other object, initial encounter; Y92.096 Garden or yard of other non-institutional residence as the place of occurrence of the external cause; Z88.8 Allergy status to other drugs, medicaments and biological substances; Z88.5 Allergy status to narcotic agent; F17.200 Nicotine dependence, unspecified, uncomplicated

== ENCOUNTER → 2018-10-05 | Outpatient (REF) | payer OTHER ==
[~2018-10-05] MED LIST changes: +SENN1TAB8 PO
[2018-10-05 11:28] LABS: BASO # 0.1 10^3/uL (0.0-0.2); EOS # 0.1 10^3/uL (0.0-0.50); EOS % 2.4 % (0.0-3.0); HEMATOCRIT 45.4 % (36.0-47.0); HEMOGLOBIN 14.7 g/dl (12.0-15.5); LYMPH # 1.9 10^3/uL (1.5-4.5); LYMPH % 31.4 % (24.0-44.0); MEAN CORPUSCULAR HGB CONC 32.4 g/dl (32.0-36.5); MEAN CORPUSCULAR VOLUME 98.9 fl (80.0-96.0); MONO # 0.5 10^3/uL (0.0-0.8); MONO % 8.2 % (0.0-5.0); NEUTROPHILS # 3.4 10^3/uL (1.8-7.7); NEUTROPHILS % 56.8 % (36.0-66.0); PLATELET COUNT, AUTOMATED 161 10^3/uL (150-450); RED BLOOD COUNT 4.59 10^6/uL (4.00-5.40)
== END ==
LOC: M SFHCPLAZ 09:06
PROVIDERS: ATTEND Family Medicine
DX: D58.2 Other hemoglobinopathies (principal); E66.09 Other obesity due to excess calories

== ENCOUNTER → 2019-08-03 | Outpatient (CLI) | payer BC, OTHER ==
[~2019-08-03] MED LIST changes: +OMEP1CAP73 PO; -OMEP20CA3 PO
--- NOTE | 2019-08-03 10:08 | REP ---
REASON FOR EXAM: Followup ventral hernia. COMPARISON EXAM: 04/07/2018 and 10/19/2016. The lung bases are clear. There is cholelithiasis. Limited evaluation of the solid intra-abdominal organs show no gross abnormalities or significant changes from the prior exam. Limited evaluation of the kidneys, adrenal glands, and pancreas show no gross abnormalities or significant changes from the prior exam. There is a ventral hernia containing a large bowel loop. This is in the supraumbilical region. In the infraumbilical region there is an additional ventral hernia which contains small bowel loops. The supraumbilical hernia has not changed in size, however, the infraumbilical hernia appears to have increased slightly in size but with fewer small bowel loops within it on today's exam compared to the latest prior. There is no evidence of intestinal obstruction. There is no evidence of free fluid or free air. Limited evaluation of the abdominal aorta and paraaortic regions show no gross abnormalities. CT PELVIS: There is no pelvic mass or adenopathy. There is no free fluid or free air. The pelvic bowel loops are within normal limits. Bone window technique throughout the examination shows no significant change in the appearance of the osseous structures. IMPRESSION: 1. Ventral hernias as described above. 2. Cholelithiasis. 3. Other findings and limitations as described above. Electronically Signed by Jermain Harrison DO 08/03/2019 10:18 A
== END ==
LOC: M RAD 08:57
PROVIDERS: ATTEND Surgery
DX: K43.9 Ventral hernia without obstruction or gangrene (principal); K80.20 Calculus of gallbladder without cholecystitis without obstruction

== ENCOUNTER → 2019-10-27 | Outpatient (CLI) | payer BC, OTHER ==
[~2019-10-27] MED LIST changes: +SENN-80 PO; -SENN1TAB8 PO
--- NOTE | 2019-10-27 12:01 | REP ---
LEFT FOOT, FOUR VIEWS: Four views left foot performed. I see no evidence of acute fracture or dislocation. There is mild posterior calcaneal spurring. There is a large inferior calcaneal spur. There is mild spurring of the dorsal distal talus. There is mild narrowing and subchondral sclerosis at the medial tarsal/metatarsal joints. There is moderately severe narrowing at the 1st metatarsophalangeal joint with moderate degree of spurring and subchondral sclerosis. There is mild irregularity and erosive change at the articulating surfaces of this joint. IMPRESSION: No fracture or dislocation. Arthritic changes, as above. Electronically Signed by Ren Rivers MD 10/27/2019 03:18 P
== END ==
LOC: M WUC 09:36
PROVIDERS: ATTEND Physician Assistant
DX: M25.572 Pain in left ankle and joints of left foot (principal)

== ENCOUNTER → 2020-03-26 | Outpatient (REF) | payer OTHER ==
[2020-03-26 17:16] LABS: HEMOGLOBIN A1c 5.9 %
[2020-03-26 17:38] LABS: ALT/SGPT 42 U/L (12-78); BILIRUBIN,TOTAL 0.5 MG/DL (0.2-1.0); BLOOD UREA NITROGEN 14 MG/DL (7-18); CALCIUM LEVEL 9.6 MG/DL (8.8-10.2); CARBON DIOXIDE LEVEL 28 MEQ/L (21-32); CHLORIDE LEVEL 109 MEQ/L (98-107); CHOLESTEROL LEVEL 269 MG/DL (<200); CHOLESTEROL RISK RATIO 3.493 (<5); CREATININE FOR GFR 0.81 MG/DL (0.55-1.30); FREE T4 1.19 NG/DL (0.76-1.46); GLOMERULAR FILTRATION RATE > 60.0 (>45); GLUCOSE, FASTING 95 MG/DL (70-100); HDL CHOLESTEROL 77 MG/DL (>40); LDL CHOLESTEROL 164 MG/DL (<100); NON-HDL-C 192 MG/DL; POTASSIUM SERUM 4.2 MEQ/L (3.5-5.1); SODIUM LEVEL 144 MEQ/L (136-145); THYROID STIMULATING HORMONE 0.697 uIU/ML (0.358-3.740); TOTAL PROTEIN 7.1 GM/DL (6.4-8.2); TRIGLYCERIDES LEVEL 138 MG/DL (<150)
== END ==
LOC: M SFHCPLAZ 13:57
PROVIDERS: ATTEND Nurse Practitioner Family
DX: R73.03 Prediabetes (principal); E66.09 Other obesity due to excess calories

== ENCOUNTER → 2020-05-29 | Outpatient (REF) | payer OTHER ==
[~2020-05-29] MED LIST changes: +DOK1CAP7 PO; +MIRA1POW3 PO; +OXYC-517 PO; +OXYC1TAB23 PO
== END ==
LOC: M SFHCPLAZ 15:23
PROVIDERS: ATTEND Family Medicine
DX: Z01.818 Encounter for other preprocedural examination (principal)

== ENCOUNTER → 2020-05-30 | Outpatient (CLI) | payer OTHER | LOC: M LABSMTC 09:53 | PROVIDERS: ATTEND Anesthesiology | DX: Z20.828 Contact with and (suspected) exposure to other viral communicable diseases (principal) ==

== ENCOUNTER 2020-06-04 10:00 | Inpatient (IN) | payer BC, OTHER ==
--- NOTE | 2020-06-03 19:50 | HPE ---
HISTORY AND PHYSICAL DATE OF ANTICIPATED ADMISSION: 06/04/2020 ADMITTING DIAGNOSIS: Ventral incisional hernia. HISTORY OF PRESENT ILLNESS: The patient is a pleasant 59-year-old woman who is being admitted on the 04 of June to undergo an open repair of a ventral incisional hernia with mesh with possible component separation. The patient had undergone a hysterectomy back in 1996. 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 This was performed at [facility]. She developed a significant midline hernia following this. She underwent a laparoscopic lysis of adhesions in May of 2018. She had been scheduled for repair but the physician performing the procedure did not feel that he could address her wide midline separation at this surgery and did not perform a repair of the midline. She has followed up with me in the office. She suffers from morbid obesity and I have encouraged her to lose weight. She had a followup CT scan of the abdomen and pelvis in August of 2019. This revealed a ventral hernia containing a loop of large bowel in the epigastric area. In the periumbilical region there was an additional ventral hernia which contained some loops of small bowel. We have discussed repair of her hernia in the office on several occasions. She has had limited success at losing weight. Her medical issues appear stable at this time. Given the significant separation of the midline fascia, I have recommended that we perform an open procedure with possible component separation and placement of mesh to repair her hernia. She is now admitted to undergo this procedure. ALLERGIES: The patient reports allergies to NEURONTIN and TORADOL. CURRENT MEDICATIONS: - Fish oil concentrate 1000 mg capsules, one capsule once a day - Vitamin C 500 mg orally once daily - Omeprazole 20 mg by mouth daily - Cyclobenzaprine 5 mg tablets, one twice a day as needed - Meclizine 12.5 mg tablets one or two as needed for vertigo daily - Senokot two tablets at bedtime as needed for constipation daily MEDICAL HISTORY: Significant for gastroesophageal reflux. She has a history of hyperlipidemia. She had an abdominal liposarcoma resected several years ago. She has some degenerative disk disease with some chronic neck and low back pain. She has obstructive sleep apnea diagnosed by home test. SURGICAL HISTORY: Significant for hysterectomy back in 1996. She has had a right cataract extraction in 2006. She had a fusion of L5-S1 in 2000. Her liposarcoma was removed from the abdomen in December of 2016. She had a laparoscopic lysis of adhesions in May of 2018. FAMILY HISTORY: Father is and her mother is alive with a history of hypertension and diabetes at age 85. SOCIAL HISTORY: The patient is . She is retired. She does not smoke but does drink alcohol fairly regularly. She is a former smoker who quit in May of 2018. REVIEW OF SYSTEMS: Reveals no history of chest pain or palpitations. She has no cough, wheezing, or sputum production. She denies any dysuria or hematuria. She has no history of rectal bleeding, change in her bowel habits, diarrhea. She has some occasional constipation. There is no history jaundice, hepatitis, or pancreatitis. She has no history of DVT or pulmonary embolus. She has no particular bone or joint pain complaints at this time although does have some chronic back pain. PHYSICAL EXAMINATION: VITAL SIGNS: When seen in the office most recently, she had a blood pressure of 144/92. Height is recorded as 62 inches with a weight of 91 kg giving her a BMI of approximately 37. GENERAL: The patient is alert, oriented and cooperative. She has no signs of acute distress. HEENT: No evidence of abnormality. Sclerae are anicteric. Mucous membranes are moist. NECK: Supple without mass. Skin is warm and dry. The patient has no cervical bruits. HEART: Heart exam shows a regular rate and rhythm. LUNGS: Clear to auscultation bilaterally. ABDOMEN: Abdominal exam shows an obese abdomen. She has a midline scar extending from the epigastrium to slightly below the umbilicus. There is bulging along the midline with Valsalva particularly in the supraumbilical area. By palpation there appears to be a fascial defect approximately 6-7 cm wide at this point. The abdomen is otherwise soft and nontender throughout. EXTREMITIES: Palpable radial and pedal pulses bilaterally with no significant lower extremity edema. IMAGING: The patient's most recent CT scan of the abdomen was from August 03, 2019. I reviewed this in the office and again at the time of this dictation. This shows that starting about at the level of the umbilicus and extending inferiorly the midline of the abdomen appears intact. However, beginning at the umbilicus and extending superiorly, there is a roughly 8-10 cm wide separation of the muscles and fascia over a distance of approximately 10 cm. There is then an area of weak fascia with several defects perhaps 5 cm in width. Then there is another larger defect containing the transverse colon in a defect approximately 7 cm maximally in width x 6 cm in length. IMPRESSION: 1. Large ventral incisional hernias. 2. Morbid obesity. 3. Obstructive sleep apnea. 4. Hyperlipidemia. 5. Gastroesophageal reflux disease. 6. Chronic back pain. 7. History of liposarcoma of the upper abdomen. PLAN: The patient is being admitted to undergo an open repair of her ventral incisional hernias with mesh and component separation. She was counseled in the office regarding the risks of the surgery. Risks include but are not limited to bleeding, infection, scarring, adverse drug reaction, need for further surgery, injury of internal organ, and recurrence of her hernia. She had an opportunity to ask questions. These were answered to the best of my ability. She desires to proceed with the surgery. She will receive preoperative antibiotics to try to reduce her risk of surgical infection. TEDs and sequentials will be utilized for DVT prophylaxis initially. She was counseled to anticipate approximately a two day hospital stay. MAX
[~2020-06-04] VITALS: Ht 157.5 cm; Wt 89.5 kg
[~2020-06-04 10:00] MED LIST changes: -DOK1CAP7 PO; +LR 1,000 ML IV ONE; -OXYC-517 PO; -OXYC1TAB23 PO; +ceFAZolin SOD 2 GM in IV 1 EA IV ONE
[2020-06-04] MEDS ORDERED: fentaNYL 250 MCG/5 ML INJECTION (J3010) As Ordered ONE (10:03)
[2020-06-04] MEDS ORDERED: LIDOCAINE 2% 100MG/5ML SDV (FOR ANES.) As Ordered ONE (10:04)
[2020-06-04] MEDS ORDERED: dexameTHASONE 4 MG/ML 1ML VIAL (J1100 PER 1MG) As Ordered ONE (10:04)
[2020-06-04] MEDS ORDERED: KETOROLAC 60MG 2ML VIAL As Ordered ONE (10:04)
[2020-06-04] MEDS ORDERED: propofoL 200 MG/20 ML VIAL As Ordered ONE (10:04)
[2020-06-04] MEDS ORDERED: ROCURONIUM BROMIDE 50 MG/5 ML VIAL As Ordered ONE ×4 (10:04→15:40)
[2020-06-04] MEDS ORDERED: MIDAZOLAM INJ 2MG/2ML VIAL (J2250 PER 1MG) As Ordered ONE (10:04)
[2020-06-04] MEDS ORDERED: ONDANSETRON 4MG/2ML VIAL As Ordered ONE (10:04)
[2020-06-04] MEDS ORDERED: BUPIVACAINE HCL 0.25% 30ML VIAL As Ordered ONE (11:44)
[2020-06-04] MEDS ORDERED: ACETAMINOPHEN 1000MG 100ML IV BTL (OFIRMEV) (J0131 PER 10MG) As Ordered ONE (12:29)
[2020-06-04] MEDS ORDERED: HYDROmorphone HCL 2 MG/ML 1ML VIAL (J1170) As Ordered ONE (12:53)
[2020-06-04] MEDS ORDERED: SUGAMMADEX SODIUM 500 MG/5 ML VIAL (BRIDION) As Ordered ONE (13:09)
[2020-06-04] MEDS ORDERED: LABETALOL 100MG/20ML VIAL As Ordered ONE (13:58)
[2020-06-04] MEDS ORDERED: fentaNYL 100 MCG/2 ML INJECTION (J3010) As Ordered ONE (15:51)
[2020-06-04] MEDS ORDERED: ceFAZolin 2 GM/D5W 50 ML IV BAG (J0690 PER 500MG) As Ordered ONE (16:05)
[2020-06-04] MEDS ORDERED: PHENYLephrine 500MCG 5ML (100MCG/ML) SYRINGE As Ordered ONE (16:13)
[2020-06-04] MEDS ORDERED: OMEPRAZOLE 20 MG CAP PO PRN (17:30)
[2020-06-04] MEDS ORDERED: CYCLOBENZAPRINE 5MG TABLET PO PRN (17:30)
[2020-06-04] MEDS ORDERED: ACETAMINOPHEN TAB 650MG DOSE (2X325MG) PO PRN (17:30)
[2020-06-04] MEDS ORDERED: MORPHINE 2 MG/ML 1ML VIAL (J2270) IV PRN (17:30)
[2020-06-04] MEDS ORDERED: ONDANSETRON 4MG/2ML VIAL IV PRN ×2 (17:30→17:45)
[2020-06-04] MEDS ORDERED: LR 1,000 ML IV SCH (17:45)
[2020-06-04] MEDS: fentaNYL 100 MCG/2 ML INJECTION (J3010) IV PRN ×4 (17:46→18:17)
[2020-06-04] MEDS: oxyCODONE 5MG TAB PO PRN ×2 (17:47→18:20)
[2020-06-04 18:45] VITALS: BP 156/98
[2020-06-04] MEDS: LR 1,000 ML IV SCH (19:08)
[2020-06-04 19:15] VITALS: BP 154/98
[2020-06-04 19:30] VITALS: BP 151/17
[2020-06-04] MEDS: SENNA 8.6 MG TAB (SENOKOT) PO SCH (20:10)
[2020-06-04] MEDS: DOCUSATE SODIUM 100MG CAPSULE PO SCH (20:10)
[2020-06-04 20:30] VITALS: BP 137/91
[2020-06-04 21:30] VITALS: BP 134/92
[2020-06-04 22:30] VITALS: BP 144/93
[2020-06-04] MEDS: ceFAZolin SOD 1 GM in D5W MINI-BAG PLUS 50 ML IV SCH (22:46)
[2020-06-04] MEDS: KETOROLAC 30 MG/ML 1ML VIAL IV SCH (22:46)
[2020-06-05] VITALS (7 sets, daily range): BP systolic 127–140; BP diastolic 83–93; O2SAT 94
[2020-06-05] MEDS: KETOROLAC 30 MG/ML 1ML VIAL IV SCH ×3 (03:56→16:05)
[2020-06-05] MEDS: LR 1,000 ML IV SCH ×2 (03:56→13:25)
[2020-06-05 08:04] LABS: BASO % 0.4 % (0.0-1.0); EOS # 0.1 10^3/uL (0.0-0.5); EOS % 1.9 % (0.0-3.0); HEMOGLOBIN 12.6 g/dl (12.0-15.5); LYMPH % 13.5 % (24.0-44.0); MEAN CORPUSCULAR HEMOGLOBIN 33.1 pg (27.0-33.0); MEAN CORPUSCULAR HGB CONC 32.3 g/dl (32.0-36.5); MEAN CORPUSCULAR VOLUME 102.4 fl (80.0-96.0); MONO # 0.5 10^3/uL (0.0-0.8); MONO % 6.4 % (0.0-5.0); NEUTROPHILS # 5.9 10^3/uL (1.5-8.5); NEUTROPHILS % 77.5 % (36.0-66.0); PLATELET COUNT, AUTOMATED 125 10^3/uL (150-450); RED BLOOD COUNT 3.81 10^6/uL (4.00-5.40); WHITE BLOOD COUNT 7.5 10^3/uL (4.0-10.0)
[2020-06-05 08:22] LABS: BLOOD UREA NITROGEN 11 MG/DL (7-18); CALCIUM LEVEL 8.3 MG/DL (8.8-10.2); CARBON DIOXIDE LEVEL 28 MEQ/L (21-32); CHLORIDE LEVEL 108 MEQ/L (98-107); GLOMERULAR FILTRATION RATE > 60.0 (>45); GLUCOSE, FASTING 111 MG/DL (70-100); POTASSIUM SERUM 3.9 MEQ/L (3.5-5.1); SODIUM LEVEL 143 MEQ/L (136-145)
[2020-06-05] MEDS: DOCUSATE SODIUM 100MG CAPSULE PO SCH ×2 (08:32→20:08)
[2020-06-05] MEDS: SENNA 8.6 MG TAB (SENOKOT) PO SCH ×2 (08:32→20:08)
[2020-06-05] MEDS: ceFAZolin SOD 1 GM in D5W MINI-BAG PLUS 50 ML IV SCH (08:32)
[2020-06-05] MEDS: oxyCODONE 5MG TAB PO PRN ×2 (08:33→20:08)
--- NOTE | 2020-06-05 11:58 | IPNPDOC ---
Text Note Date of Service The patient was seen on 06/05/20. NOTE General Surgery. Dr Linares Subjective. The patient is a 59-year-old female POD1 S/P elective open repair of ventral incisional hernia with mesh with component separation and excision of scar as per Dr Linares. The patient is resting in bed. She reports her pain is reasonably controlled, she has more pain if she moves around. Thus far she has received 2 doses of Toradol and 1 dose of oxycodone. She has not used any morphine. She denies any nausea or vomiting, she has had some Jell-O and broth but states she is not very hungry. She states wants to continue with liquids for now. Objective. Afebrile, heart rate 98, respirations 16, blood pressure 136/87, oxygen saturat ion 96% 3 L nasal cannula. Respiratory. Clear to auscultation Cardiovascular. S1 and S2 regular rate and rhythm. Abdomen. Midline incision with dressing intact. No drainage noted on the dressing. NICANOR drain present left upper abdomen and right lower abdomen with serosanguineous drainage noted. Mild tenderness around the surgical site. Extremities. No edema. Intake 3935/205 +3730. Oral intake 310 mL yesterday. NICANOR drain output left upper abdomen 30 mL, a lower abdomen 25 mL. This morning's labs indicate WBC 7.5, hemoglobin 12.6, platelet 125. Serum creatinine 0.70 with GFR greater than 60. Assessment/plan POD1 S/P elective open repair of ventral incisional hernia with mesh with component separation and excision of scar. The patient is reviewed and examined as per Dr. Linares this morning. For now, continue with clear liquids diet. The patient does not feel ready to advance her diet yet. LR 100cc/hr. Continue with analgesia. Will finish with doses of Toradol then change to ibuprofen 600 mg as needed. Discontinue Parr catheter. Continue to monitor. VS,Fishbone, I+O VS, Fishbone, I+O Laboratory Tests 06/05/20 07:49 Vital Signs Date Time Temp Pulse Resp B/P (MAP) Pulse Ox O2 Delivery O2 Flow Rate FiO2 06/05/20 10:00 97.7 114 18 128/85 (99) 93 Room Air 06/05/20 06:00 3.0 I&O- Last 24 Hours up to 6 AM 06/05/20 05:59 Intake Total 4085 ml Output Total 205 ml Balance 3880 ml Attending Note Attending Note Pt seen this am and I concur with above note. Patient actually seems more comfortable than I expected. Tolerating clears and comfortable with these for now. May be ready for DC in am. Will probably need to keep drains a few more days. Dalia Johns Jun 05, 2020 11:58 Juventino Linares Jun 05, 2020 17:33
[2020-06-06 06:00] VITALS: BP 138/87
[2020-06-06] MEDS: oxyCODONE 5MG TAB PO PRN ×2 (07:45→21:01)
[2020-06-06] MEDS ORDERED: IBUPROFEN 600MG TAB PO PRN (08:00)
[2020-06-06] MEDS: DOCUSATE SODIUM 100MG CAPSULE PO SCH ×2 (09:27→21:00)
[2020-06-06] MEDS: SENNA 8.6 MG TAB (SENOKOT) PO SCH ×2 (09:27→21:00)
--- NOTE | 2020-06-06 11:10 | IPNPDOC ---
Text Note Date of Service The patient was seen on 06/06/20. NOTE General Surgery. Dr Linares Subjective. The patient is a 59-year-old female POD2 S/P elective open repair of ventral incisional hernia with mesh with component separation and excision of scar as per Dr Linares. The patient is out of bed to the chair and up to the bathroom. She reports her pain is reasonably controlled. She is to doses of oxycodone yesterday and one this morning. She has not used any morphine. She has advanced to a regular diet but states she is not very hungry. She denies any nausea or vomiting. Objective. Afebrile, heart rate 104, respirations 18, blood pressure 138/87, oxygen saturation 96% 2 L nasal cannula. Respiratory. Clear to auscultation Cardiovascular. S1 and S2 regular rate and rhythm. Abdomen. Midline incision with dressing intact. No drainage noted on the dressing. NICANOR drain present left upper abdomen and right lower abdomen with small amount serosanguineous drainage noted. Mild tenderness around the surgical site. Extremities. No edema. Intake 3460 / 1800 + 1600. Oral intake 1660 mL yesterday. NICANOR drain output left upper abdomen 120 mL, right lower abdomen 80 mL. No new labs this morning. Assessment/plan POD2 S/P elective open repair of ventral incisional hernia with mesh with component separation and excision of scar. Continue with analgesia. Tylenol as needed, ibuprofen as needed, oxycodone as needed. Regular diet. Continue to monitor. Possibly consider discharge tomorrow. VS,Fishbone, I+O VS, Fishbone, I+O Vital Signs Date Time Temp Pulse Resp B/P (MAP) Pulse Ox O2 Delivery O2 Flow Rate FiO2 06/06/20 08:15 18 06/06/20 06:00 97.9 104 138/87 (104) 96 Nasal Cannula 2.0 I&O- Last 24 Hours up to 6 AM 06/06/20 06:00 Intake Total 2910 ml Output Total 1895 ml Balance 1015 ml Attending Note Attending Note Agree with note of ANANDA Johns. Patient overall doing well. Appetite improving. Moving better. Note should read "used 2" doses of oxycodone. I anticipate she will go home 06/07/20. Dalia Johns Jun 06, 2020 11:10 Juventino Linares Jun 07, 2020 09:16
[2020-06-06 14:00] VITALS: BP 139/88
--- NOTE | 2020-06-06 14:08 | RO ---
OPERATIVE NOTE DATE OF OPERATION: 06/04/2020 PREOPERATIVE DIAGNOSIS: Ventral incisional hernia. POSTOPERATIVE DIAGNOSIS: Ventral incisional hernia. PROCEDURE: Open repair of extensive ventral incisional with placement of mesh and bilateral abdominal wall component separation. SURGEON: Juventino Linares MD RV REPAIRER: Ren Gaytan DO MESH UTILIZED: 25 x 20 rectangular piece of [employer] Parietex mesh. This is reference code [id number] and lot number [id number]. ANESTHESIA: General. INDICATIONS FOR THE PROCEDURE: The patient is a 59-year-old woman who several years ago had undergone an open excision of a large upper abdominal liposarcoma. She subsequently developed a ventral hernia with several prominent fascial defects along the midline scar. She is now for repair of her hernia with placement of mesh and component separation. DESCRIPTION OF PROCEDURE: The patient was brought to the operating room and placed on the table in a supine position. She was placed under general endotracheal anesthesia. TEDs and sequentials were utilized. A Parr catheter was inserted. The patient's abdomen was prepped and draped in a sterile fashion. Her upper midline scar was noted extending from just below the xiphoid to slightly below the umbilicus on the right. By palpation, there were clearly two fascial defects. One of these was high in the epigastrium and the other was at and just above the umbilicus. By review of her CT scan, the defect in the upper epigastrium was perhaps 4-5 cm in diameter and the one by the umbilicus was 8-10 cm wide with several areas of weakness or smaller defects between the two. Her scar was somewhat widened with prominent staple zhong. I elected to excise her scar. Therefore, an elliptical incision was made with a scalpel, taking out a piece of the skin and underlying subcutaneous fat approximately 3 cm in width extending from the xiphoid process to the level of the umbilicus. The skin was elevated off of the underlying soft tissue, leaving a portion of the subcutaneous fat attached to the skin using the cautery. This was passed off as an abdominal scar. The incision was then deepened to the subcutaneous tissues using the cautery. Just above the umbilicus, her hernia sac was identified quite shallow beneath the skin. I proceeded to open the peritoneum along the midline extending this superiorly. It was possible to palpate through the large defect at the level of the umbilicus. There were several russell ridges of fascia with several intervening fascial defects. The incision was carried superiorly and the second defect high in the epigastrium was entered. The defect appeared to extend to just below the xiphoid. Inferiorly, the fascial defect extended inferior to the umbilicus by several cm. The defect at the level of the umbilicus was approximately 8-10 cm wide. I elected to open the rectus sheath to try to close the posterior layer of peritoneum and rectus fascia to place the mesh behind the muscle but outside the peritoneum. Therefore, dissection of the rectus sheath was begun on the left-hand side, opening the sheath longitudinally and freeing the posterior fascia from the muscle, extending all the way from below the level of the umbilicus to the ribs. There were areas where it was possible to preserve a portion of the peritoneum and posterior fascia extending beyond the rectus sheath. The right side of the abdominal wall was likewise approached to open the edge of the rectus sheath and extend this through the length of the rectus muscle. Following this, the subcutaneous tissues were elevated off of the fascia again beginning on the left side and extending laterally to identify the lateral border of the rectus muscle. Several perforating vessels were preserved during the course of dissection. This dissection was carried all the way up onto to the rib cage and extended down into the low abdomen below the level of the inferior end of the fascial defect. An opening was made longitudinally lateral to the edge of the rectus sheath to incise the external oblique aponeurosis. Using a large right-angle clamp to elevate this layer of fascia, the incision in the external oblique fascia was carried superiorly and inferiorly as far as possible. Using blunt finger dissection, the attachments between the external oblique and the internal oblique laterally were opened by working through the avascular plane between the two layers of muscle. The component separation was performed similarly on the right with elevation of the subcutaneous tissues off of the fascia. Again, several perforating vessels were preserved. The lateral edge of the rectus muscle was identified and the external oblique fascia was incised extending superiorly and inferiorly. The external oblique was freed laterally from the internal oblique by blunt finger dissection with minimal sharp dissection or cautery as needed. The wound was irrigated as needed. Some additional dissection was carried out extending posterior to the xiphoid to free the midline fascia for additional closure. After completing the component separation bilaterally, the closure was begun by closing the fascial portions of the posterior rectus sheath superiorly and inferiorly with interrupted simple sutures of #1 Vicryl. There were portions of this layer that consisted primarily of peritoneum and portions of the hernia sac and these were likewise closed with #1 Vicryl but as running sutures. It was possible to close this layer completely. I then measured the space that needed to be covered with mesh and this was approximately 25 cm in length. At its midpoint, the area was 16 cm in width and at the superior and inferior ends of the wound, it tapered to 8 cm. A 25 x 20 cm Parietex as noted earlier was trimmed to give this roughly football shape with a 16 cm wide and tapering it at both ends to 8. This was moistened and then placed into the retrorectus space. This was positioned with the nonadherent side facing the muscle. This was sutured superiorly with a #1 Vicryl suturing the fascia along the midline to the underlying mesh. A similar suture was placed at the inferior end of the closure which placed the inferior end of the mesh approximately 3-4 cm inferior to the superior end of the intact fascia below the umbilicus. Several additional sutures were placed on either edge to keep the mesh spread out to its full width at the superior and inferior ends of the mesh. Likewise at the widest point of the mesh, sutures were placed through the anterior rectus sheath and muscle to take a bite through the mesh and keep it completely spread out. The anterior layer of the rectus sheath was then closed longitudinally with interrupted simple sutures of #1 Vicryl. In the course of closure, a 19 [place] Jose Cruz drain was placed on top of the mesh posterior to the rectus muscle and brought out through a separate stab wound in the right lower abdomen. A second 19 [place] Jose Cruz drain was placed in the subcutaneous tissues overlying the closed midline fascia and brought out through a stab wound in the left upper quadrant. The wound was copiously irrigated with warm saline and the wound was inspected for hemostasis which was excellent. The skin and subcutaneous tissue flaps appeared viable. The subcutaneous fat layer was approximated with several buried sutures of 0 Chromic. The skin edges were brought into apposition with several buried sutures of 3-0 Vicryl. The skin edges were approximated with skin maxime. Approximately 30 mL of 1/4% Marcaine were infiltrated along both sides of the midline incision. The drains were sutured to the skin with silk sutures. These were both dressed with CHG Opsite dressings and connected to Hill-Vargas bulbs. A bulky bandage was applied. The patient tolerated the procedure well without apparent complication. I elected to leave her Parr catheter in place overnight. She was awakened in the operating room, extubated and moved to the recovery room in stable condition.
[2020-06-06 22:00] VITALS: BP 131/81
[2020-06-07 01:40] VITALS: O2SAT 93
[2020-06-07 02:00] VITALS: BP 111/78
[2020-06-07 06:00] VITALS: BP 134/86
[2020-06-07] MEDS: DOCUSATE SODIUM 100MG CAPSULE PO SCH (08:11)
[2020-06-07] MEDS: SENNA 8.6 MG TAB (SENOKOT) PO SCH (08:11)
[2020-06-07 09:18] VITALS: O2SAT 94
[2020-06-07] MEDS ORDERED: OXYC-517 PO (10:42)
[2020-06-07] MEDS ORDERED: DOK1CAP7 PO (10:42)
[2020-06-07] MEDS ORDERED: OXYC1TAB23 PO (10:45)
--- NOTE | 2020-06-07 11:28 | DS.PDOC ---
Discharge Summary General Date of Admission Jun 04, 2020 at 10:54 Date of Discharge 06/07/20 Primary Care Physician: JENNIFER NJ NP Attending Physician: Juventino Linares Discharge Summary General Surgery Dr Linares PROCEDURES PERFORMED DURING STAY: Open repair of extensive ventral incisional with placement of mesh and bilateral abdominal wall component separation as per Dr. Linares 06/04/20. ADMITTING DIAGNOSES: Large ventral hernia containing loop of large bowel in the supraumbilical area, additional infraumbilical ventral hernia containing loops of small bowel. GERD Dyslipidemia DDD, chronic neck and low back pain ZENA BMI 36.1 DISCHARGE DIAGNOSES: Large ventral hernia containing loop of large bowel in the supraumbilical area, additional infraumbilical ventral hernia containing loops of small bowel, status post open repair of extensive ventral incisional with placement of mesh and bilateral abdominal wall component separation as per Dr. Linares 06/04/20. 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 Underwent laparoscopic lysis of adhesions in May 2018. CAT scan abdomen/pelvis August 2019 indicated ventral hernia containing a loop of large bowel in the supraumbilical area with additional ventral hernia in the infraumbilical area containing loops of small bowel. The patient was noted to have significant separation of the midline fascia and it was recommended per Dr. Linares to perform an open procedure with possible component separation and placement of mesh to repair her hernia. HOSPITAL COURSE: The patient was admitted 06/04/20 to proceed with open ventral incisional hernia repair with mesh and component separation. The patient tolerated the procedure well. By postoperative day one she reported pain was controlled and tolerated clear liquids. By postoperative day 2 the patient resumed regular diet. She was up out of bed to the chair. Pain controlled. By postoperative day 3 the patient felt ready for discharge. Her abdominal incision was noted to be healing, this was examined by Dr. Linares. Approximately every other staple of the abdominal wound was removed, Steri-Strips were applied. NICANOR drains remain intact and will be followed up as outpatient. Over the past 24 hours the patient was noted to have 135 mL from the upper abdomen drain and 95 mL from the lower abdomen drain. DISCHARGE MEDICATIONS: Please see below. ALLERGIES: Please see below. PHYSICAL EXAMINATION ON DISCHARGE: VITAL SIGNS: Please see below. GENERAL: NAD, out of bed to chair HEENT: MMM CARDIOVASCULAR EXAMINATION: S1-S2 regular rate rhythm RESPIRATORY EXAMINATION: CTA ABDOMINAL EXAMINATION: The abdomen is soft, non-distended. The patient's surgical incision is examined by Dr. Linares. No drainage, no signs of infection. Every other staple was removed. Steri-Strips are applied. NICANOR drains are intact. EXTREMITIES: No edema LABORATORY DATA: Please see below. ACTIVITY: As tolerated. Light activity, no lifting. DIET: Regular DISPOSITION: Discharge to home. DISCHARGE INSTRUCTIONS: 1. Light activity, no lifting 2. Clean dry dressing to midline abdominal incision daily. NICANOR drains will remain in place for discharge until outpatient follow-up with Dr. Linares. Discussed with the patient how to drain fluid from the NICANOR drains and record output, bring outpatient follow-up. 3. Follow-up with Dr. Linares in the office Wednesday06/12/2020. 4. The patient is advised she can use ibuprofen 600 mg every 6 hours as needed. For severe pain she can use Percocet 5/325 one tablet 4 times a day as needed for severe pain. DISCHARGE CONDITION: Stable. TIME SPENT ON DISCHARGE: Greater than 30 minutes. Vital Signs/I&Os Vital Signs Date Time Temp Pulse Resp B/P (MAP) Pulse Ox O2 Delivery O2 Flow Rate FiO2 06/07/20 09:18 94 Room Air 06/07/20 06:00 97.4 93 18 134/86 (102) 06/06/20 06:00 2.0 I&O- Last 24 Hours up to 6 AM 06/07/20 06:00 Intake Total 1490 ml Output Total 175 ml Balance 1315 ml Laboratory Data Labs 24H Item Value Date Time White Blood Count 7.5 10^3/uL 06/05/20 0749 Red Blood Count 3.81 10^6/uL L 06/05/20 0749 Hemoglobin 12.6 g/dl 06/05/20 0749 Hematocrit 39.0 % 06/05/20 0749 Platelet Count 125 10^3/uL L 06/05/20 0749 Sodium Level 143 MEQ/L 06/05/20 0749 Potassium Level 3.9 MEQ/L 06/05/20 0749 Chloride Level 108 MEQ/L H 06/05/20 0749 Carbon Dioxide Level 28 MEQ/L 06/05/20 0749 Anion Gap 7 MEQ/L L 06/05/20 0749 Blood Urea Nitrogen 11 MG/DL 06/05/20 0749 Creatinine 0.70 MG/DL 06/05/20 0749 Glomerular Filtration Rate > 60.0 06/05/20 0749 Discharge Medications Scheduled Docusate Sodium (Dok) 100 Mg Capsule, 100 MG PO BID Scheduled PRN Cyclobenzaprine HCl (Cyclobenzaprine HCl) 5 Mg Tab, 5 MG PO BID PRN for MUSCLE SPASMS, (Reported) Omeprazole (Omeprazole) 20 Mg Cap, 20 MG PO DAILY PRN for ACID REFLUX, (Reported) Oxycodone HCl/Acetaminophen (Oxycodone-Acetaminophen 5-325) 1 Each Tablet, 1 TAB PO QIDP PRN for pain Sennosides (Senna) 8.6 Mg Tablet, 8.6 MG PO BID PRN for CONSTIPATION, (Reported) Allergies Coded Allergies: gabapentin (Verified Allergy, Unknown, confused, 05/21/20) Attending Note Attending Note Agree with note by Dalia Johns. Patient doing well on POD #3. Counselled against any lifting >20-25 lbs. No showering till after drains removed. To record output from drains 2 to 3 times daily and as needed. Bring record of output to office visit. I will see her and anticipate removal of drains in 5 days. To call for any problems. Dalia Johns Jun 07, 2020 10:59 Juventino Linares Jun 10, 2020 19:41
== END 2020-06-07 13:16 | disposition home or self-care (01) | DRG 227 ==
LOC: M OR 10:54 → M MSPAV 18:39
PROVIDERS: ADMIT Surgery; ATTEND Surgery
PROC: 0WUF0JZ Supplement Abdominal Wall with Synthetic Substitute, Open Approach (ICD-10-PCS; principal; 2020-06-04 13:15)
DX: K43.0 Incisional hernia with obstruction, without gangrene (principal); E66.01 Morbid (severe) obesity due to excess calories; K21.9 Gastro-esophageal reflux disease without esophagitis; E78.5 Hyperlipidemia, unspecified; G47.33 Obstructive sleep apnea (adult) (pediatric); M54.2 Cervicalgia; M54.5 Low back pain; Z68.36 Body mass index [BMI] 36.0-36.9, adult; Z79.899 Other long term (current) drug therapy; Z88.8 Allergy status to other drugs, medicaments and biological substances

== ENCOUNTER 2020-12-27 15:51 | Emergency (ER) | payer BC, OTHER ==
[~2020-12-27] VITALS: Ht 160 cm; Wt 85.0 kg
[~2020-12-27 15:51] MED LIST changes: +DOK1CAP4 PO; -LR 1,000 ML IV ONE; +OMEP20TA2 PO; -OMEP20TA9 PO; +OXYC-517 PO; +OXYC1TAB23 PO; -ceFAZolin SOD 2 GM in IV 1 EA IV ONE
[2020-12-27] MEDS ORDERED: POLY17PO18 PO (16:04)
[2020-12-27] MEDS ORDERED: ISOVUE-370 76% 100ML VIAL As Ordered ONE (20:32)
[2020-12-27 20:43] LABS: BASO % 0.5 % (0.0-1.0); EOS # 0.1 10^3/uL (0.0-0.5); EOS % 1.5 % (0.0-3.0); HEMATOCRIT 46.5 % (36.0-47.0); HEMOGLOBIN 15.4 g/dl (12.0-15.5); LYMPH # 2.5 10^3/uL (1.5-5.0); LYMPH % 34.1 % (24.0-44.0); MEAN CORPUSCULAR HEMOGLOBIN 33.3 pg (27.0-33.0); MEAN CORPUSCULAR HGB CONC 33.1 g/dl (32.0-36.5); MEAN CORPUSCULAR VOLUME 100.4 fl (80.0-96.0); MONO # 0.6 10^3/uL (0.0-0.8); MONO % 7.6 % (2.0-8.0); NEUTROPHILS # 4.2 10^3/uL (1.5-8.5); NEUTROPHILS % 56.2 % (36.0-66.0); PLATELET COUNT, AUTOMATED 155 10^3/uL (150-450); RED BLOOD COUNT 4.63 10^6/uL (4.00-5.40); WHITE BLOOD COUNT 7.4 10^3/uL (4.0-10.0)
[2020-12-27 21:15] VITALS: BP 159/80
[2020-12-27 21:38] LABS: ALBUMIN 3.9 GM/DL (3.2-5.2); BILIRUBIN,DIRECT 0.2 MG/DL (0.0-0.2); BILIRUBIN,TOTAL 0.6 MG/DL (0.2-1.0); TOTAL PROTEIN 7.2 GM/DL (6.4-8.2)
--- NOTE | 2020-12-27 21:40 | REPVR ---
PROCEDURE INFORMATION: Exam: CT Abdomen And Pelvis With Contrast Exam date and time: 12/27/2020 8:40 PM Age: 59 years old Clinical indication: Abdominal pain; Other: Llq pain, rectal bleeding, prior hernia pain around site TECHNIQUE: Imaging protocol: Computed tomography of the abdomen and pelvis with contrast. Radiation optimization: All CT scans at this facility use at least one of these dose optimization techniques: automated exposure control; mA and/or kV adjustment per patient size (includes targeted exams where dose is matched to clinical indication); or iterative reconstruction. Contrast material: ISOVUE 370; Contrast volume: 100 ml; Contrast route: INTRAVENOUS (IV); COMPARISON: CT ABD PELVIS W/O CONTRAST 08/03/2019 9:11 AM FINDINGS: Liver: The liver is low attenuation indicating hepatic steatosis. Gallbladder and bile ducts: Small calculi in the gallbladder. No gallbladder wall thickening or biliary duct dilation. Pancreas: Normal. No ductal dilation. Spleen: Normal. No splenomegaly. Adrenal glands: Normal. No mass. Kidneys and ureters: Unremarkable. No calculi or hydronephrosis. Stomach and bowel: No recurrent hernia is seen. Appendix: No evidence of appendicitis. Intraperitoneal space: No free air. No significant fluid collection. Vasculature: Unremarkable. No abdominal aortic aneurysm. Lymph nodes: Unremarkable. No enlarged lymph nodes. Urinary bladder: Unremarkable as visualized. Reproductive: There has been prior hysterectomy. Bones/joints: There are degenerative changes in the spine and pelvis. Soft tissues: Interval repair of the previous midline ventral abdominal wall hernia. There is a thick-walled midline anterior abdominal wall subcutaneous fluid collection at the site of the previous hernia measuring 13 x 2.5 x 6.6 cm. There is a 2nd thin preperitoneal fluid collection measuring approximately 5.8 x 0.7 x 7.7 cm superior to the larger collection. IMPRESSION: 1. Interval anterior abdominal wall hernia repair. Subcutaneous fluid collection at the hernia repair site may be residual seroma versus abscess. 2nd smaller preperitoneal fluid collection superior to the larger fluid collection. No intraperitoneal abscess. 2. Hepatic steatosis. 3. No recurrent hernia. 4. Cholelithiasis. Electronically signed by: Chas Reeves On 12/27/2020 21:39:38 PM
== END 2020-12-27 22:30 | disposition home or self-care (01) ==
LOC: M ED 15:51
DX: R19.5 Other fecal abnormalities (principal); K91.872 Postprocedural seroma of a digestive system organ or structure following a digestive system procedure; I10 Essential (primary) hypertension; E78.5 Hyperlipidemia, unspecified; K64.9 Unspecified hemorrhoids; K21.9 Gastro-esophageal reflux disease without esophagitis; G47.33 Obstructive sleep apnea (adult) (pediatric); F41.9 Anxiety disorder, unspecified; F32.9 Major depressive disorder, single episode, unspecified; K80.20 Calculus of gallbladder without cholecystitis without obstruction; K76.0 Fatty (change of) liver, not elsewhere classified; Z79.899 Other long term (current) drug therapy; Z88.8 Allergy status to other drugs, medicaments and biological substances
CPT/HCPCS: 36415; 74177; 80047; 80076; 83690; 85025; 99284; Q9967

== ENCOUNTER → 2021-03-13 | Outpatient (CLI) | payer BC, OTHER ==
[~2021-03-13] MED LIST changes: +MECL-136 PO; +META0.52 PO; +POLY17PO18 PO
== END ==
LOC: M LABSMTC 09:38
PROVIDERS: ATTEND Anesthesiology
DX: Z01.812 Encounter for preprocedural laboratory examination (principal); Z20.822 Contact with and (suspected) exposure to COVID-19

== ENCOUNTER 2021-03-18 08:21 | Day surgery (SDC) | payer BC, OTHER ==
[~2021-03-18] VITALS: Ht 160 cm; Wt 84.4 kg
[~2021-03-18 08:21] MED LIST changes: +NS 1,000 ML IV ONE
--- OUTSIDE RECORDS SUMMARY | 2021-03-18 08:25 | CCD ---
Author Author [facility] Organization [facility] Address Unknown Phone Unavailable Care Team Providers Care Account Service Associate Name Role Phone Val Ashton Unavailable PROBLEMS Type Condition ICD9-CM Code [id number] Code Onset Dates Condition S tatus W/U Status Risk SNOMED Code Notes Problem Gastroesophageal reflux disease, esophagitis pre sence not specified K21.9 Active confirmed 704818849 Problem Elevated hemoglobin D58.2 Active confirmed 875654901 Problem Hyperlipidemia, unspecified hyperlipidemia type E7 8.5 Active confirmed 99706057 Problem Lumbago with sciatica, right side M54.41 Active confirmed 13538950 Problem Other chronic pain G89.29 Active confirmed 8 8761742 Problem Ventral hernia without obstruction or gangrene K43 .9 Active confirmed 714518333 Problem Prediabetes R73.03 Active confirmed 44114097 2 Problem Body mass index (BMI) of 39.0-39.9 in adult Z68.39 Active confirmed 816078063 Problem Other obesity due to excess calories E66.09 Act greg confirmed 351442949 Problem ZENA (obstructive sleep apnea) G47.33 Active confirm ed 26509479 Problem BMI 36.0-36.9,adult Z68.36 Active confirmed 567777854 ALLERGIES Allergen (clinical drug ingredient) Drug/Non Drug Allergy do cumented on EMR Reaction Allergy Type Onset Date Status Toradol altered mental status Non Drug Allergy Active gabapentin Neurontin([facility] Code:[address]-00) altered mental statu s Drug Allergy Active ENCOUNTERS from 1960 to 2020-12-27 Encounter Location Date Provider Diagnosis [address] [phone] [place] [address] Dec, Val Bulan IMMUNIZATIONS Vaccine Route Administration Date Status Influenza 18 yrs & older Flublok Unknown Mar 26, 2020 Administered Influenza 18 yrs & older Flublok IM Intramuscular Mar 03, 2018 Administered Zoster 50mcg/0.5mL Shingrix Unknown Feb 21, 2019 Admi nistered SOCIAL HISTORY Tobacco Use: Social History Observation Description Date Details (start date - stop date) Former Smoker Sex Assigned At : Social History Observation Description Sex Assigned At Unknown Education: Question Answer Notes Level of Education: High School Audit Question Answer Notes Total Score: 1 Interpretation: Alcohol Education Language: Question Answer Notes Languages spoken: Turkmen Pentecostalism: Question Answer Notes Pentecostalism 33 None Domestic Violence: Question Answer Notes Status: Sexual Hx: Question Answer Notes Had sex in the last 12 months (vaginal, oral, or anal)? No Have you ever had an STD? No Drug and Alcohol Question Answer Notes Total Score: 0 Interpretation: No problems reported Alcohol Screening: Question Answer Notes Did you have a drink containing alcohol in the past year? Ye s Points 8 Interpretation Positive How often did you have six or more drinks on one occas ion in the past year? Monthly (2 points) How many drinks did you have on a typica l day when you were drinking in the past year? 5 or 6 (2 points) How often did you have a drink containing alcohol in t he past year? Four or more times a week (4 points) Tobacco Use: Question Answer Notes Are you a: former smoker How long has it been since you last smoked? 3-6 months REASON FOR REFERRAL No Information VITAL SIGNS No information MEDICATIONS Medication SIG (Take, Route, Frequency, Duration) Notes Start Da te End Date Status Omeprazole 20 MG 1 capsule Orally Once a day Active Cyclobenzaprine HCl 5 MG 1 tablet as needed Orally bid for 90 Active Vitamin C 500 MG as directed Orally Once a day Active MiraLax - 1 cap Orally as needed No t-Taking Senokot 8.6 MG 2 tablets at bedtime as needed Orally Once a day Active Shingrix 50 MCG as directed Intramuscular as directed for 1 dose(s) Not-Taking Fish Oil Concentrate 1000 MG 1 capsule Orally Once a day for 30 day(s ) Active Meclizine HCl 12.5 MG -1 2 tablets as needed for v ertigo Orally Daily for 30 day(s) Mar, Active PROCEDURES No Information RESULTS No Results REASON FOR VISIT blood in stool, stomach doesn't feel right MEDICAL (GENERAL) HISTORY Type Description Date Medical History GERD Medical History Hyperlipidemia; ASCVD risk 3.8% in 03/22 20 Medical History Hx of abdominal liposarcoma - (Dr. 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 (yr unkown - no record) Surgical History scar tissue removed from abdomen 05/2018 Hospitalization History surgery related Hospitalization History concussion 08/2018 Goals Section No Information Health Concerns No Information MEDICAL EQUIPMENT No Information MENTAL STATUS No Information FUNCTIONAL STATUS No Information ASSESSMENTS No Information PLAN OF TREATMENT Medication Medication Name Sig Start Date Stop Date Cyclobenzaprine HCl 5 MG 1 tablet as needed Orally bid for 90 Omeprazole 20 MG 1 capsule Orally Once a day Insurance Providers Payer Name Payer Address Payer Phone Insured Name Patient Relati onship to Insured Coverage Start Date Coverage End Date [facility] [address] [facility] [id number] JAVIER AVITIA [id number]
--- OUTSIDE RECORDS SUMMARY | 2021-03-18 08:25 | CCD | Continuity of Care Document ---
Author Author [facility] Organization Unknown Address [address], [address] [place] [address] Phone [phone] Care Team Providers Care Male Infertility Specialist Name Role Phone Brent Somers M.D. AUTM [phone] Val Ashotn AUTM [phone] Problems Description No Information Available Social History Type Date Description Comments Sex Unknown ETOH Use 3-4 Weekly Recreational Drug Use Denies Drug Use Tobacco Use Start: Unknown End: Unknown Patient is a former smoker 5-6 /DAY X 20 YRS Tobacco Use Start: Unknown Quit 05/2018 Allergies, Adverse Reactions, Alerts Active Allergies Criticality Reaction | Severity Comments Date Neurontin Unable to assess criticality CONFUSION 11/10/2016 Ketorolac Tromethamine Unable to assess criticality CONFUSION 11/10/2016 Medications Active Medications SIG Qnty Indications Ordering Provide r Date Omeprazole 20mg Capsules DR 1 by mouth as needed Unknown Metamucil 28.3% Powder one table spoon to a glass of water twice a day Unknown Docusate Sodium 100mg Capsules 1 cap by mouth twice a day Unknown Cyclobenzaprine HCL 5mg Tablets 1 tab by mouth twice a day as needed Unknown Immunizations Description No Information Available Vital Signs Date Vital Result Comment 12/31/2020 10:11am BP Systolic 153 mmHg BP Diastolic 90 mmHg Heart Rate 65 /min Body Temperature 98.3 F Height 62 inches 5'2" Weight 187.38 lb BMI (Body Mass Index) 34.3 kg/m2 [place] Body Weight 110 lb Weight 84.993 kg BSA (Body Surface Area) 1.86 m2 08/14/2020 8:36am BP Systolic 160 mmHg BP Diastolic 88 mmHg Height 62 inches 5'2" Weight 198.00 lb BMI (Body Mass Index) 36.2 kg/m2 [place] Body Weight 110 lb Weight 89.813 kg BSA (Body Surface Area) 1.90 m2 Results Description No Information Available Procedures Date Code Description Status 12/31/2020 98346 Office/Outpatient Established Mo d MDM 30-39 Min Completed Medical Devices Description No Information Available Encounters Type Date Location Provider Dx Diagnosis Office Visit 12/31/2020 10:30a [facility] ANANDA Amanda K43.2 Incisional hernia without obstruction or gangrene R10.9 Unspecified abdominal pain R19.4 Change in bowel habit K21.9 Gastro-esophageal reflux dis ease without esophagitis Office Visit 08/14/2020 8:30a [facility] Juventino del castillo M.D. K43.2 Incisional hernia without obstruction or gangrene Z48.89 Encounter for other specifie d surgical aftercare Assessments Date Code Description Provider 12/31/2020 K43.2 Incisional hernia without obstru ction or gangrene ANANDA Campa 12/31/2020 R10.9 Unspecified abdominal pain ANANDA Campa 12/31/2020 R19.4 Change in bowel habit ANANDA Carrillo 12/31/2020 K21.9 Gastro-esophageal reflux disease without esophagitis ANANDA Campa 08/14/2020 K43.2 Incisional hernia without obstru ction or gangrene Juventino Linares M.D. 08/14/2020 Z48.89 Encounter for other specified vázquez rgical aftercare Juventino Linares M.D. Plan of Treatment Future Appointment(s):* 02/20/2021 1:30 pm - ANANDA Campa at [facility] * 02/07/2021 12:30 pm - Juventino Linares M.D. at [facility] 12/31/2020 - ANANDA Campa* K43.2 Incisional hernia without obstruction or gangrene * R10.9 Unspecified abdominal pain * R19.4 Change in bowel habit * K21.9 Gastro-esophageal reflux disease without esophagitis Functional Status Description No Information Available Mental Status Description No Information Available Referrals Description No Information Available
--- OUTSIDE RECORDS SUMMARY | 2021-03-18 08:25 | CCD | Continuity of Care Document ---
Author Author [facility]iva CORRAL PA Organization Unknown Address [address], [address] [place] [address] Phone [phone] Care Team Providers Care Hydrogen Operator Name Role Phone Brent Somers M.D. AUTM [phone] Val Ashton AUTM [phone] Problems Description No Information Available Social History [...] lb BMI (Body Mass Index) 34.3 kg/m2 [place] Body Weight 110 lb Weight 84.993 kg BSA (Body Surface Area) 1.86 m2 08/14/2020 8:36am BP Systolic 160 mmHg BP Diastolic 88 mmHg Height 62 inches 5'2" Weight 198.00 lb BMI (Body Mass Index) 36.2 kg/m2 [place] Body Weight 110 lb Weight 89.813 kg BSA (Body Surface Area) 1.90 m2 Results Description No Information Available Procedures Description No Information Available Medical Devices Description No Information Available Encounters Type Date Location Provider Dx Diagnosis Office Visit 08/14/2020 8:30a [facility] Juventino del castillo M.D. K43.2 Incisional [...] aftercare Juventino Linares M.D. Plan of Treatment No Information Available Functional Status Description No Information Available Mental Status Description No Information Available Referrals Description No Information Available
--- OUTSIDE RECORDS SUMMARY | 2021-03-18 08:25 | CCD | Continuity of Care Document ---
Author Author Aviva CORRAL PA Organization Unknown Address [address], [address] [place] [address] Phone [phone] Care Team Providers Care Reheater Helper Name Role Phone Brent Somers M.D. AUTM [phone] Val Ashton AUTM [phone] Problems Description No Information Available Social History [...] lb BMI (Body Mass Index) 34.3 kg/m2 [place] Body Weight 110 lb Weight 84.993 kg BSA (Body Surface Area) 1.86 m2 08/14/2020 8:36am BP Systolic 160 mmHg BP Diastolic 88 mmHg Height 62 inches 5'2" Weight 198.00 lb BMI (Body Mass Index) 36.2 kg/m2 [place] Body Weight 110 lb Weight 89.813 kg BSA (Body Surface Area) 1.90 m2 Results Description No Information Available Procedures Description No Information Available Medical Devices Description No Information Available Encounters Type Date Location Provider Dx Diagnosis Office Visit 08/14/2020 8:30a [facility] Juventino del castillo M.D. K43.2 [...]
--- OUTSIDE RECORDS SUMMARY | 2021-03-18 08:25 | CCD | Continuity of Care Document ---
Author Author [facility]iva CORRAL PA Organization Unknown Address [address], [address] [place] [address] Phone [phone] Care Team Providers Care Computer Technology Instructor Name Role Phone Brent Somers M.D. AUTM [phone] Val Ashton AUTM [phone] Problems Description No Information Available Social History [...] lb BMI (Body Mass Index) 34.3 kg/m2 [place] Body Weight 110 lb Weight 84.993 kg BSA (Body Surface Area) 1.86 m2 08/14/2020 8:36am BP Systolic 160 mmHg BP Diastolic 88 mmHg Height 62 inches 5'2" Weight 198.00 lb BMI (Body Mass Index) 36.2 kg/m2 [place] Body Weight 110 lb Weight 89.813 kg BSA (Body Surface Area) 1.90 m2 Results Description No Information Available Procedures Description No Information Available Medical Devices Description No Information Available Encounters Type Date Location Provider Dx Diagnosis Office Visit 08/14/2020 8:30a [facility] Juventino del castillo [...]
--- OUTSIDE RECORDS SUMMARY | 2021-03-18 08:25 | CCD ---
Author Author [facility] Organization [facility] Address Unknown Phone Unavailable Care Team Providers Care Geological Specialist Name Role Phone Clemente, Maricel PRODUCTION STATISTICAL CLERK Unavailable Unavailable Clemente, Maricel PRODUCTION STATISTICAL CLERK Unavailable Unavailable Clemente, Maricel PRODUCTION STATISTICAL CLERK Unavailable Unavailable Clemente, Maricel PRODUCTION STATISTICAL CLERK Unavailable Unavailable Clemente, Maricel PRODUCTION STATISTICAL CLERK Unavailable Unavailable Clemente, Maricel PRODUCTION STATISTICAL CLERK Unavailable Unavailable Clemente, Maricel PRODUCTION STATISTICAL CLERK Unavailable Unavailable Clemente, Maricel PRODUCTION STATISTICAL CLERK Unavailable Unavailable Clemente, Maricel PRODUCTION STATISTICAL CLERK Unavailable Unavailable Clemente, Maricel PRODUCTION STATISTICAL CLERK Unavailable Unavailable Clemente, Maricel PRODUCTION STATISTICAL CLERK Unavailable Unavailable Clemente, Maricel PRODUCTION STATISTICAL CLERK Unavailable Unavailable Clemente, Maricel PRODUCTION STATISTICAL CLERK Unavailable Unavailable Geneva MUSTAFA MD Unavailable Unavailable Geneva MUSTAFA MD Unavailable Unavailable Geneva MUSTAFA MD Unavailable Unavailable Geneva MUSTAFA MD Unavailable Unavailable Geneva MUSTAFA MD Unavailable Unavailable Geneva MSUTAFA MD Unavailable Unavailable Geneva MUSTAFA MD Unavailable Unavailable Geneva MUSTAFA MD Unavailable Unavailable Geneva MUSTAFA MD Unavailable Unavailable Geneva MUSTAFA MD Unavailable Unavailable Geneva MUSTAFA MD Unavailable Unavailable Geneva MUSTAFA MD Unavailable Unavailable Geneva MUSTAFA MD Unavailable Unavailable Geneva MUSTAFA MD Unavailable Unavailable Geneva MUSTAFA MD Unavailable Unavailable Geneva MUSTAFA MD Unavailable Unavailable Geneva MUSTAFA MD Unavailable Unavailable Geneva MUSTAFA MD Unavailable Unavailable Geneva MUSTAFA MD Unavailable Unavailable Geneva MUSTAFA MD Unavailable Unavailable Geneva MUSTAFA MD Unavailable Unavailable Geneva MUSTAFA MD Unavailable Unavailable RAMSEY, O SOCORRO MD Unavailable Unavailable RAMSEY, O SOCORRO MD Unavailable Unavailable RAMSEY, O SOCORRO MD Unavailable Unavailable RAMSEY, O SOCORRO MD Unavailable Unavailable RAMSEY, O SOCORRO MD Unavailable Unavailable RAMSEY, O SOCORRO MD Unavailable Unavailable RAMSEY, O SOCORRO MD Unavailable Unavailable RAMSEY, O SOCORRO MD Unavailable Unavailable RAMSEY, O SOCORRO MD Unavailable Unavailable RAMSEY, O SOCORRO MD Unavailable Unavailable RAMSEY, O SOCORRO MD Unavailable Unavailable RAMSEY, O SOCORRO MD Unavailable Unavailable RAMSEY, O SOCORRO MD Unavailable Unavailable RAMSEY, O SOCORRO MD Unavailable Unavailable RAMSEY, O SOCORRO MD Unavailable Unavailable RAMSEY, O SOCORRO MD Unavailable Unavailable RAMSEY, O SOCORRO MD Unavailable Unavailable RAMSEY, O SOCORRO MD Unavailable Unavailable RAMSEY, O SOCORRO MD Unavailable Unavailable RAMSEY, O SOCORRO MD Unavailable Unavailable RAMSEY, O SOCORRO MD Unavailable Unavailable RAMSEY, O SOCORRO MD Unavailable Unavailable RAMSEY, O SOCORRO MD Unavailable Unavailable Johns, L Dalia RPA Unavailable Unavailable Johns, L Dalia RPA Unavailable Unavailable Johns, L Dalia RPA Unavailable Unavailable Johns, L Dalia RPA Unavailable Unavailable Johns, L Dalia RPA Unavailable Unavailable Johns, L Dalia RPA Unavailable Unavailable Johns, L Dalia RPA Unavailable Unavailable Johns, L Dalia RPA Unavailable Unavailable Johns, L Dalia RPA Unavailable Unavailable Johns, L Dalia RPA Unavailable Unavailable Johns, L Dalia RPA Unavailable Unavailable Johns, L Dalia RPA Unavailable Unavailable Johns, L Dalia RPA Unavailable Unavailable Johns, L Dalia RPA Unavailable Unavailable Johns, L Dalia RPA Unavailable Unavailable Johns, L Dalia RPA Unavailable Unavailable Johns, L Dalia RPA Unavailable Unavailable Johns, L Dalia RPA Unavailable Unavailable Johns, L Dalia RPA Unavailable Unavailable Johns, L Dalia RPA Unavailable Unavailable Johns, L Dalia RPA Unavailable Unavailable Johns, L Dalia RPA Unavailable Unavailable Johns, L Dalia RPA Unavailable Unavailable Johns, L Dalia RPA Unavailable Unavailable Johns, L Dalia RPA Unavailable Unavailable Johns, L Dalia RPA Unavailable Unavailable Johns, L Dalia RPA Unavailable Unavailable Johns, L Dalia RPA Unavailable Unavailable Johns, L Dalia RPA Unavailable Unavailable Johns, L Dalia RPA Unavailable Unavailable Johns, L Dalia RPA Unavailable Unavailable Johns, L Dalia RPA Unavailable Unavailable Re-disclosure Warning The records that you are about to access may contain information from federally-assisted alcohol or drug abuse programs. If such information is present, then the following federally mandated warning applies: This information has been disclosed to you from records protected by federal confidentiality rules (42 CFR part 2). The federal rules prohibit you from making any further disclosure of this information unless further disclosure is expressly permitted by the written consent of the person to whom it pertains or as otherwise permitted by 42 CFR part 2. A general authorization for the release of medical or other information is NOT sufficient for this purpose. The Federal rules restrict any use of the information to criminally investigate or prosecute any alcohol or drug abuse patient.The records that you are about to access may contain highly sensitive health information, the redisclosure of which is protected by Article 27-F of the [facility] Public Health law. If you continue you may have access to information: Regarding HIV / AIDS; Provided by facilities licensed or operated by the [facility] Office of Mental Health; or Provided by the [facility] Office for People With Developmental Disabilities. If such information is present, then the following [facility] mandated warning applies: This information has been disclosed to you from confidential records which are protected by state law. State law prohibits you from making any further disclosure of this information without the specific written consent of the person to whom it pertains, or as otherwise permitted by law. Any unauthorized further disclosure in violation of state law may result in a fine or fpc sentence or both. A general authorization for the release of medical or other information is NOT sufficient authorization for further disc losure. Family History Family Member Name Family Member Gender Family Member Status Date o f Status Description Data Source(s) Unknown Unknown Problem MEDENT ([facility]) Unknown Male Problem MEDENT ([facility]) Unknown Male Problem MEDENT ([facility], ) () Encounters Encounter Providers Location Date Indications Data Source(s ) Outpatient Attender: Dalia Chacon/Ricardo/Claudio/Latisha johns 12/31/2020 10:30:00 AM EDT MEDENT ([facility] [place] [address] [place] [address] 12/27/2020 12:00:00 AM EDT eCW1 ([facility] hospital) Outpatient Attender: Maricel yun 11/10/2020 12:25:00 PM EDT MEDENT ([facility]) Office Visit Attender: SOCORRO Chacon/Ricardo/Claudio/Re indl 08/14/2020 08:30:00 AM EDT MEDENT ([facility]) Office Visit Attender: SOCORRO Chacon/Ricardo/Claudio/Re indl 07/03/2020 08:00:00 AM EST MEDENT ([facility]) Office Visit Attender: SOCORRO Chcaon/Ricardo/Claudio/Re indl 06/19/2020 10:15:00 AM EST MEDENT ([facility]) Office Visit Attender: SOCORRO Chacon/Ricardo/Claudio/Re indl 06/12/2020 08:15:00 AM EST MEDENT ([facility]) [place] [address] [facility] [place] [address] 05/30/2020 12:00:00 AM EST eCW1 ([facility]) [place] [address] [facility] [place] [address] 05/29/2020 12:00:00 AM EST eCW1 ([facility]) Unknown [address] [facility] [place] [address] 05/29/2020 12:00:00 AM EST eCW1 ([facility]) Outpatient Attender: SOCORRO Chacon/Ricardo/Claudio/Re indl 04/03/2020 07:30:00 AM EST MEDENT ([facility]) Outpatient [address] [place] [address] 03/26/2020 12:00:00 AM EST eCW1 ([facility]) Outpatient Attender: SOCORRO Chacon/[place]/Claudio/Re indl 03/13/2020 07:30:00 AM EST MEDENT ([facility]) Immunizations Vaccine Date Status Description Data Source(s) COVID-19 VACCINE Pfizer 07/31/2020 12:00:00 AM EDT completed [facility] Vaccine Series Complete: YESThis Data wa s Submitted to [facility] [employer]. COVID-19 VACCINE Pfizer 07/10/2020 12:00:00 AM EST completed [facility] Vaccine Series Complete: NOThis Data was Submitted to [facility] [employer]. influenza, recombinant, quadrIvalent,injectable, prese rvative free 03/26/2020 01:10:00 PM EST completed eCW1 ([facility]) influenza, recombinant, quadrIvalent,injectable, prese rvative free 03/26/2020 01:10:00 PM EST completed eCW1 ([facility]) influenza, recombinant, quadrIvalent,injectable, prese rvative free 03/26/2020 01:10:00 PM EST completed eCW1 ([facility]) influenza, recombinant, quadrIvalent,injectable, prese rvative free 03/26/2020 01:10:00 PM EST completed eCW1 ([facility]) influenza, recombinant, quadrIvalent,injectable, prese rvative free 03/26/2020 01:10:00 PM EST completed eCW1 ([facility]) INFLUENZA VIRUS VACCINE QUADRIVALENT 2019- (6 MOS AN D UP) 03/04/2020 12:00:00 AM EST completed [facility] Medications Medication Brand Name Start Date Product Form Dose Route Admi nistrative Instructions Pharmacy Instructions Status Indications Reaction Description Data Source(s) SUPREP BOWEL PREP KIT 17.5-3.13-1.6 gram SODIUM, POTASSIUM,M AG SULFATES 03/03/2021 12:00:00 AM EDT recon soln 354 DIRECTED DIREC JERAMY SOLD: 03/08/2021 [facility] 1 % 02/10/2021 12:00:00 AM EDT drops,suspension 10 INSTILL 1 DROP IN THE LEFT EYE FOUR TIMES A DAY INSTILL 1 DROP IN THE LEFT EYE FOUR TIMES A DAY SOLD: 02/10/2021 [facility] 0.5 % 02/10/2021 12:00:00 AM EDT drops 5 INSTILL 1 DROP IN THE LEFT EYE FOUR TIMES A DAY INSTILL 1 DROP IN THE LEFT EYE FOUR TIMES A DAY SOLD: 02/10/2021 [facility] Cyclobenzaprine hydrochloride 5 MG Oral Tablet CYCLOBENZAPRI NE HCL 12/21/2020 12:00:00 AM EDT tablet 152 TAKE ONE TABLET BY MOUTH TWICE A DAY NEEDED TAKE ONE TABLET BY MOUTH TWICE A DAY NEEDED SOLD: 12/21/2020 [facility] 5 mg/gram (0.5 %) 11/10/2020 12:00:00 AM EDT ointment 3 APPLY TO AFFECTED EYE 4 TIMES A DAY FOR 5 DAYS APPLY TO AFFECTED EYE 4 TIMES A DAY FOR 5 DAYS SOLD: 11/10/2020 [facility] Erythromycin 0.005 MG/MG Ophthalmic Ointment Erythromycin 11/10/2020 12:00:00 AM EDT active MEDENT ([facility]) 100 mg 06/26/2020 12:00:00 AM EST capsule 60 TAKE ONE CAPSULE BY MOUTH TWICE A DAY TAKE ONE CAPSULE BY MOUTH TWICE A DAY SOLD: 06/26/2020 [facility] 5 mg 06/25/2020 12:00:00 AM EST tablet 180 TAKE ONE TABLET BY MOUTH TWICE A DAY TAKE ONE TABLET BY MOUTH TWICE A DAY SOLD: 06/26/2020 [facility] 5-325 mg 06/07/2020 12:00:00 AM EST tablet 20 TAKE ONE TABLET BY MOUTH FOUR TIMES A DAY NEEDED FOR PAIN MAXIMUM DAILY DOSE = 4 TABLETS TAKE ONE TABLET BY MOUTH FOUR TIMES A DAY NEEDED FOR PAIN MAXIMUM DAILY DOSE = 4 TABLETS SOLD: 06/07/2020 [facility] 20 mg 03/27/2020 12:00:00 AM EST capsule,delayed release (DR/EC) 90 TAKE ONE CAPSULE BY MOUTH EVERY DAY TAKE ONE CAPSULE BY MOUTH EVERY DAY SOLD: 06/26/2020 [facility] 20 mg 03/27/2020 12:00:00 AM EST capsule,delayed release (DR/EC) 90 TAKE ONE CAPSULE BY MOUTH EVERY DAY TAKE ONE CAPSULE BY MOUTH EVERY DAY SOLD: 03/30/2020 [facility] 12.5 mg 03/27/2020 12:00:00 AM EST tablet 60 TAKE ONE TO TWO TABLETS BY MOUTH EVERY DAY NEEDED FOR VERTIGO TAKE ONE TO TWO TABLETS BY MOUTH EVERY D AY NEEDED FOR VERTIGO SOLD: 03/30/2020 [facility] 20 mg 03/27/2020 12:00:00 AM EST capsule,delayed release (DR/EC) 90 TAKE ONE CAPSULE BY MOUTH EVERY DAY TAKE ONE CAPSULE BY MOUTH EVERY DAY SOLD: 09/27/2020 [facility] 20 mg 03/27/2020 12:00:00 AM EST capsule,delayed release (DR/EC) 90 TAKE ONE CAPSULE BY MOUTH EVERY DAY TAKE ONE CAPSULE BY MOUTH EVERY DAY SOLD: 12/31/2020 [facility] Meclizine Hydrochloride 12.5 MG Oral Tablet Meclizine HCl 12.5 MG Meclizine HCl 12.5 MG 03/26/2020 12:00:00 AM EST active Meclizine HCl 12.5 MG [facility] Meclizine Hydrochloride 12.5 MG Oral Tablet Meclizine HCl 12.5 MG Meclizine HCl 12.5 MG 03/26/2020 12:00:00 AM EST active Meclizine HCl 12.5 MG [facility]CW1 [facility]) Meclizine Hydrochloride 12.5 MG Oral Tablet Meclizine HCl 12.5 MG Meclizine HCl 12.5 MG 03/26/2020 12:00:00 AM EST active Meclizine HCl 12.5 MG eCW1 [facility]) Cyclobenzaprine hydrochloride 5 MG Oral Tablet CYCLOBENZAPRI NE HCL 03/26/2020 12:00:00 AM EST tablet 180 TAKE ONE TABLET BY MOUTH TWICE A DAY NEEDED TAKE ONE TABLET BY MOUTH TWICE A DAY NEEDED SOLD: 03/30/2020 [facility] Meclizine Hydrochloride 12.5 MG Oral Tablet Meclizine HCl 12.5 MG Meclizine HCl 12.5 MG 03/26/2020 12:00:00 AM EST active Meclizine HCl 12.5 MG [facility]CW1 [facility]) Meclizine Hydrochloride 12.5 MG Oral Tablet Meclizine HCl 12.5 MG Meclizine HCl 12.5 MG 03/26/2020 12:00:00 AM EST active Meclizine HCl 12.5 MG [facility]CW1 [facility]) Insurance Providers Payer name Policy type / Coverage type Policy ID Covered republican ID Covered republican's relationship to freeman Policy [place] Plan Information [employer] () Workers Compensation [id number] Self [id number] [employer] (WC) Workers Compensation [id number] Self [id number] [place] [facility] ([facility]) 7 [id number] 7 [id number] [place] [facility] ([facility]) 7 [id number] 7 [id number] [place] [employer] (NF) Workers Compensation [id number] 0 [id number] [place] P [id number] S [id number] [place] P [id number] S [id number] [place] P [id number] S [id number] BS EMPIRE [employer] DIV [id number] WI2 [id number] [employer] [id number] WI2 [id number] BCBS EMPIRE [place] DIV [id number] WI2 [id number] [employer] [id number] WI2 89 [id number] ANSI-Commercial [id number] ANSI-Commercial [id number] [facility] Commercial [id number] Family Dependent [id number] [facility] ([facility]) 8 [id number] Family Dependent [id number] [facility] ([facility]) [id number] Family Dependent [id number] ANSI-Commercial [id number] ANSI-Commercial [id number] [facility] [id number] [facility] [id number] [facility] ([facility]) 8 [id number] Family Dependent [id number] ANSI-Commercial [id number] ANSI-Commercial [id number] ANSI-Commercial [id number] ANSI-Commercial [id number] ANSI-Commercial [id number] ANSI-Commercial [id number] ANSI-Commercial [id number] [facility] [id number] WI2 89 [id number] ANSI-Commercial [id number] [facility] [place] Commercial [id number] Family Dependent [id number] [facility] [place] Commercial [id number] Family Dependent [id number] [facility] [place] Health Maintenance Organization (HMO) 8 [id number] Family Dependent [id number] [facility] [place] Health Maintenance Organization (HMO) 8 [id number] Family Dependent [id number] [place]/[facility] Commercial [id number] Self [id number] [place]/[employer] Commercial [id number] Self EMPIRE ([facility]) P [id number] S [id number] [employer] [id number] DOI 09/09/11 LP2 [id number] DOI 09/09/11 SELF PAY UNAVAILABLE UNAVAILA BLE [employer] S [id number] S [id number] [employer] P [id number] S [id number] BCBS EMPIRE [place] DIV [id number] LP2 [id number] [facility] [id number] LP2 [id number] BCBS EMPIRE [place]ST[place] DIV [id number] LP2 [id number] [employer] [id number] DOI 09/09/11 LP2 [id number] DOI 09/09/11 BCBS E[place]IRE CRIST[place] DIV [id number] WI2 [id number] UNK UNK [facility] [id number] WI2 89 [id number] [facility] [id number] WI2 89 [id number] [facility]BS [facility] CRISTI DIV [id number] WI2 [id number] BCBS [place] CRISTI DIV [id number] WI2 [id number] [facility] O [id number] S [id number] ANSI-Commercial [id number] [facility] Health Maintenance Organization (HMO) [id number] Family Dependent [id number] ANSI-Commercial [id number] ANSI-Commercial [id number] Problems, Conditions, and Diagnoses Code Display Name Description Problem Type Effective Dates Data Source(s) Z68.36 [id number] BMI 36.0-36.9,adult Problem 03/26/2020 12:00 :00 AM EST [facility] K43.9 [id number] Ventral hernia without obstruction or tyesha grene Problem 03/26/2020 12:00:00 AM EST [facility]) M54.41 Sciatica Lumbago with sciatica, right side Problem 03/26/2020 12:00:00 AM EST eCW1 [facility]) Surgeries/Procedures Procedure Description Date Indications Data Source(s) OFFICE OUTPATIENT VISIT 25 MINUTES 12/31/2020 12:00:00 AM EDT MEDENT ([facility], ) OFFICE OUTPATIENT VISIT 15 MINUTES 11/10/2020 12:00:00 AM EDT MEDENT ([facility]) Repair Initial Incisional Or Ventral Hernia Reducible 06/04/2020 12:00:00 AM EST MEDENT ([facility]) Repair Initial Incisional Or Ventral Hernia Reducible 06/04/2020 12:00:00 AM EST MEDENT ([facility]) Implantation Of Mesh Or Other Prosthesis For Incisional Or V entra 06/04/2020 12:00:00 AM EST MEDENT ([facility]) Implantation Of Mesh Or Other Prosthesis For Incisional Or V entra 06/04/2020 12:00:00 AM EST MEDENT ([facility]) Results ID Date Data Source [id number] 05/30/2020 09:45:00 AM EST [facility] Name Value Range Interpretation Code Description Data Thuy rce(s) Supporting Document(s) SARS coronavirus 2 RNA Not Detected [facility] [place] This lab was ordered by [facility] and reported by [facility]. ID Date Data Source NT-PRO BNP 05/29/2020 12:00:00 AM EST eCW1 ([facility]) Name Value Range Interpretation Code Description Data Thuy rce(s) Supporting Document(s) 69 <125 NT-PRO BNP eCW1 ([facility]) ID Date Data Source LIPID PANEL (CARDIAC RISK) 03/26/2020 12:00:00 AM EST [facility] Name Value Range Interpretation Code Description Data Thuy rce(s) Supporting Document(s) Triglyceride [Mass/volume] in Serum or Plasma by calculation 138 <150 eCW1 ([facility]) Cholesterol [Moles/volume] in Serum or Plasma 269 <200 eCW1 [facility]) Cholesterol in HDL [Moles/volume] in Serum or Plasma 77 >40 eCW1 ([facility]) Cholesterol in LDL [Mass/volume] in Serum or Plasma by calculation 16 4 <100 eCW1 [facility]) 192 eCW1 ([facility]) 3.493 <5 eCW1 ([facility]) ID Date Data Source [id number] 03/26/2020 12:00:00 AM EST eCW1 ([facility]) Name Value Range Interpretation Code Description Data Thuy rce(s) Supporting Document(s) Hemoglobin A1c/Hemoglobin.total in Blood 5.9 eCW1 ([facility]) ID Date Data Source FREE T4 & TSH PANEL 03/26/2020 12:00:00 AM EST eCW1 ([facility]) Name Value Range Interpretation Code Description Data Thuy rce(s) Supporting Document(s) 0.697 0.358-3.740 THYROID STIMULATING HORM ONE eCW1 ([facility]) 1.19 0.76-1.46 FREE T4 eCW1 ([facility]) ID Date Data Source Comprehensive Metabolic Profile (CMP) 03/26/2020 12:00:00 AM EST eCW1 [facility]) Name Value Range Interpretation Code Description Data Thuy rce(s) Supporting Document(s) 95 70-100 GLUCOSE, FASTING eCW1 ([facility]) 14 7-18 BLOOD UREA NITROGEN eCW1 ([facility]) 0.81 0.55-1.30 CREATININE FOR GFR eCW1 ([facility]) > 60.0 >45 GLOMERULAR FILTRATION RATE eCW 1 ([facility]) 4.2 3.5-5.1 POTASSIUM SERUM eCW1 ([facility]) 144 136-145 SODIUM LEVEL eCW1 ([facility]) 28 21-32 CARBON DIOXIDE LEVEL eCW1 ([facility]) 109 98-107 CHLORIDE LEVEL eCW1 ([facility]) 21 7-37 AST/SGOT eCW1 ([facility]) 9.6 8.8-10.2 CALCIUM LEVEL eCW1 ([facility]) 112 45-117 ALKALINE PHOSPHATASE eCW1 ([facility]) 42 12-78 ALT/SGPT eCW1 ([facility]) 0.5 0.2-1.0 BILIRUBIN,TOTAL eCW1 ([facility]) 7.1 6.4-8.2 TOTAL PROTEIN eCW1 ([facility]) 1.3 1.2-2.2 ALBUMIN/GLOBULIN RATIO eCW1 ([facility]) 4.0 3.2-5.2 ALBUMIN eCW1 ([facility]) Procedure Social History Code Duration Value Status Description Data Source(s ) Smoking 11/10/2020 12:00:00 AM EDT Patient is a former smoker completed Patient is a former smoker MEDENT ([facility]) Smoking 05/29/2020 12:00:00 AM EST Former Smoker completed Former Smoker [facility] Smoking 05/29/2020 12:00:00 AM EST Former Smoker completed Former Smoker eCW1 ([facility]) Smoking 05/29/2020 12:00:00 AM EST Former Smoker completed Former Smoker eCW1 ([facility]) Smoking 05/29/2020 12:00:00 AM EST Former Smoker completed Former Smoker eCW1 ([facility]) Smoking 03/26/2020 12:00:00 AM EST Former Smoker completed Former Smoker eCW1 ([facility]) Vital Signs ID Date Data Source UNK Name Value Range Interpretation Code Description Data Source(s) Body surface area Derived from formula 1.86 m2 1.86 m2 [facility] ([facility]) Body temperature 98.3 [degF] 98.3 [degF] [facility] ([facility]) Body weight 187.38 [lb_av] 187.38 [lb_av] [facility] Body mass index (BMI) [Ratio] 34.3 kg/m2 34.3 k g/m2 [facility] ([facility]) Systolic blood pressure 153 mm[Hg] 153 mm[Hg] [facility] Diastolic blood pressure 90 mm[Hg] 90 mm[Hg] [facility] ([facility]) Heart rate 65 /min 65 /min [facility] ([facility]) Body height 62 [in_i] 62 [in_i] [facility] ([facility]) 5'2" [place] body weight 110 [lb_av] 110 [lb_av] [facility] ([facility]) Body weight 84.993 kg 84.993 kg [facility] ([facility]) Body temperature 96.0 [degF] 96.0 [degF] [facility]) Systolic blood pressure 164 mm[Hg] 164 mm[Hg] M EDENT ([facility], [facility]) Diastolic blood pressure 95 mm[Hg] 95 mm[Hg] [facility], [facility]) Heart rate 101 /min 101 /min [facility], [facility]) Respiratory rate 16 /min 16 /min [facility] ( [facility], [facility]) Oxygen saturation in Arterial blood by Pulse oximetry 97 % 97 % [facility] ([facility], [facility]) Body mass index (BMI) [Ratio] 34.0 kg/m2 34.0 k g/m2 [facility] ([facility], [facility]) Body weight 186.00 [lb_av] 186.00 [lb_av] [facility] T ([facility], [facility]) Body height 62 [in_i] 62 [in_i] [facility] ([facility], [facility]) 5'2" Body surface area Derived from formula 1.90 m2 1.90 m2 [facility] ([facility]) Diastolic blood pressure 88 mm[Hg] 88 mm[Hg] [facility] ([facility]) Body weight 198.00 [lb_av] 198.00 [lb_av] [facility] ([facility]) Body mass index (BMI) [Ratio] 36.2 kg/m2 36.2 k g/m2 [facility] ([facility]) Body height 62 [in_i] 62 [in_i] [facility] 5'2" Body height 62 [in_i] 62 [in_i] [facility] ([facility]) 5'2" Systolic blood pressure 160 mm[Hg] 160 mm[Hg] [facility]) [place] body weight 110 [lb_av] 110 [lb_av] [facility] ([facility]) Body weight 89.813 kg 89.813 kg [facility] Body weight 198.00 [lb_av] 198.00 [lb_av] [facility] ([facility]) Body mass index (BMI) [Ratio] 36.2 kg/m2 36.2 k g/m2 [facility] ([facility]) [place] body weight 110 [lb_av] 110 [lb_av] [facility] ([facility]) Body weight 89.813 kg 89.813 kg [facility] Body surface area Derived from formula 1.90 m2 1.90 m2 [facility] ([facility]) Systolic blood pressure 138 mm[Hg] 138 mm[Hg] [facility] Diastolic blood pressure 72 mm[Hg] 72 mm[Hg] [facility] ([facility]) Body height 62 [in_i] 62 [in_i] [facility] ([facility]) 5'2" Body weight 199.25 [lb_av] 199.25 [lb_av] [facility] ([facility]) Body mass index (BMI) [Ratio] 36.4 kg/m2 36.4 k g/m2 [facility] ([facility]) [place] body weight 110 [lb_av] 110 [lb_av] [facility] ([facility]) Body weight 90.380 kg 90.380 kg [facility] ([facility]) Body surface area Derived from formula 1.91 m2 1.91 m2 [facility] ([facility]) Systolic blood pressure 134 mm[Hg] 134 mm[Hg] M EDENT ([facility]) Diastolic blood pressure 70 mm[Hg] 70 mm[Hg] [facility] ([facility]) Body height 62 [in_i] 62 [in_i] [facility] ([facility]) 5'2" Body weight 197.25 [lb_av] 197.25 [lb_av] [facility] ([facility]) Body mass index (BMI) [Ratio] 36.1 kg/m2 36.1 k g/m2 [facility] ([facility]) [place] body weight 110 [lb_av] 110 [lb_av] [facility] ([facility]) Body weight 89.473 kg 89.473 kg [facility] ([facility]) Body surface area Derived from formula 1.90 m2 1.90 m2 [facility] ([facility]) Body weight 201 [lb_av] 201 [lb_av] eCW1 ([facility]) Body height 62 [in_i] 62 [in_i] eCW1 ([facility]) Body mass index (BMI) [Ratio] 36.76 kg/m2 36.76 kg/m2 [facility] Heart rate 87 /min 87 /min eCW1 ([facility]) Respiratory rate 20 /min 20 /min eCW1 ([facility]) Body temperature 96.5 [degF] 96.5 [degF] eCW1 ( [facility]) Systolic blood pressure 130 mm[Hg] 130 mm[Hg] e CW1 ([facility]) Diastolic blood pressure 78 mm[Hg] 78 mm[Hg] eCW1 ([facility]) Systolic blood pressure 144 mm[Hg] 144 mm[Hg] M EDENT ([facility]) Diastolic blood pressure 92 mm[Hg] 92 mm[Hg] [facility] ([facility]) Body height 62 [in_i] 62 [in_i] [facility] ([facility]) 5'2" Body weight 201.25 [lb_av] 201.25 [lb_av] [facility] T ([facility]) Body mass index (BMI) [Ratio] 36.8 kg/m2 36.8 k g/m2 [facility] ([facility]) [place] body weight 110 [lb_av] 110 [lb_av] [facility] T ([facility]) Body weight 91.287 kg 91.287 kg [facility] ([facility]) Body surface area Derived from formula 1.92 m2 1.92 m2 [facility] ([facility]) Body weight 201 [lb_av] 201 [lb_av] eCW1 ([facility]) Body height 62 [in_i] 62 [in_i] eCW1 ([facility]) Body mass index (BMI) [Ratio] 36.76 kg/m2 36.76 kg/m2 W1 ([facility]) Heart rate 88 /min 88 /min eCW1 ([facility]) Respiratory rate 20 /min 20 /min eCW1 ([facility]) Body temperature 97.8 [degF] 97.8 [degF] eCW1 ( [facility]) Systolic blood pressure 120 mm[Hg] 120 mm[Hg] e CW1 ([facility]) Diastolic blood pressure 80 mm[Hg] 80 mm[Hg] eCW1 ([facility]) Systolic blood pressure 128 mm[Hg] 128 mm[Hg] M EDENT ([facility], ) Diastolic blood pressure 60 mm[Hg] 60 mm[Hg] [facility] ([facility]) Body height 62 [in_i] 62 [in_i] [facility] ([facility]) 5'2" Body weight 206.50 [lb_av] 206.50 [lb_av] [facility] T ([facility]) Body mass index (BMI) [Ratio] 37.8 kg/m2 37.8 k g/m2 [facility] ([facility]) [place] body weight 110 [lb_av] 110 [lb_av] [facility] T ([facility]) Body weight 93.668 kg 93.668 kg [facility] ([facility]) Patient Treatment Plan of Care Planned Activity Planned Date Details Description Data Source (s) Meclizine Hydrochloride 12.5 MG Oral Tablet 03/26/2020 12:00:00 AM EST [facility]CW[facility] ([facility])
[2021-03-18] MEDS ORDERED: fentaNYL 100 MCG/2 ML INJECTION (J3010) As Ordered ONE (09:41)
[2021-03-18] MEDS ORDERED: LIDOCAINE 1% MDV 20ML VIAL As Ordered ONE (10:29)
[2021-03-18] MEDS ORDERED: propofoL 500 MG/50 ML VIAL As Ordered ONE (10:30)
[2021-03-18 11:00] VITALS: BP 183/94
--- NOTE | 2021-03-18 11:21 | ROOR ---
Patient Name: Aviva Castillo Procedure Date: 03/18/2021 10:07 AM Date of : 1960 Age: 60 Room: [facility] Gender: Female Note Status: Finalized Procedure: Upper GI endoscopy Indications: Epigastric abdominal pain, change in bowel habits Providers: Juventino Linares MD Referring MD: Val Ashton NP Requesting Provider: Medicines: Monitored Anesthesia Care Complications: No immediate complications. Procedure: Pre-Anesthesia Assessment: - Prior to the procedure, a History and Physical was performed, and patient medications and allergies were reviewed. The patient is competent. The risks and benefits of the procedure and the sedation options and risks were discussed with the patient. All questions were answered and informed consent was obtained. Patient identification and proposed procedure were verified by the physician, the nurse and the jalousie installer in the procedure room. Mental Status Examination: alert and oriented. Prophylactic Antibiotics: The patient does not require prophylactic antibiotics. Prior Anticoagulants: The patient has taken no previous anticoagulant or antiplatelet agents. ASA Grade Assessment: II - A patient with mild systemic disease. After reviewing the risks and benefits, the patient was deemed in satisfactory condition to undergo the procedure. The anesthesia plan was to use monitored anesthesia care (MAC). Immediately prior to administration of medications, the patient was re-assessed for adequacy to receive sedatives. The heart rate, respiratory rate, oxygen saturations, blood pressure, adequacy of pulmonary ventilation, and response to care were monitored throughout the procedure. The physical status of the patient was re-assessed after the procedure. The Endoscope was introduced through the mouth, and advanced to the second part of duodenum. The upper GI endoscopy was accomplished without difficulty. The patient tolerated the procedure well. Findings: The examined esophagus was normal. Multiple small sessile polyps with no bleeding and no stigmata of recent bleeding were found on the greater curvature of the stomach. The first portion of the duodenum and second portion of the duodenum were normal. Impression: - Normal esophagus. - Multiple gastric polyps. - Normal first portion of the duodenum and second portion of the duodenum. - No specimens collected. Recommendation: - Discharge patient to home. - Resume previous diet. - Continue present medications. Procedure Code(s): --- Professional --- 12526, Esophagogastroduodenoscopy, flexible, transoral; diagnostic, including collection of specimen(s) by brushing or washing, when performed (separate procedure) Diagnosis Code(s): --- Professional --- K31.7, Polyp of stomach and duodenum R10.13, Epigastric pain CPT copyright 2019 [employer]. All rights reserved. The codes documented in this report are preliminary and upon greensman review may be revised to meet current compliance requirements. Juventino Linares MD Juventino Linares MD 03/18/2021 11:21:19 AM Electronically signed by Juventino Linares MD Number of Addenda: 0 Note Initiated On: 03/18/2021 10:07 AM Estimated Blood Loss: Estimated blood loss: none.
--- NOTE | 2021-03-18 11:25 | ROOR ---
Patient Name: Aviva Castillo Procedure Date: 03/18/2021 10:07 AM Date of : 1960 Age: 60 Room: [facility] Gender: Female Note Status: Finalized Procedure: Colonoscopy Indications: Epigastric abdominal pain, Change in bowel habits Providers: Juventino Linares MD Referring MD: Val Ashton NP Requesting Provider: Medicines: Monitored Anesthesia Care Complications: No immediate complications. Procedure: Pre-Anesthesia Assessment: - Prior to the procedure, a History and Physical was performed, and patient medications and allergies were reviewed. The patient is competent. The risks and benefits of the procedure and the sedation options and risks were discussed with the patient. All questions were answered and informed consent was obtained. Patient identification and proposed procedure were verified by the physician, the nurse and the it desktop support specialist in the procedure room. Mental Status Examination: alert and oriented. Prophylactic Antibiotics: The patient does not require prophylactic antibiotics. Prior Anticoagulants: The patient has taken no previous anticoagulant or antiplatelet agents. ASA Grade Assessment: II - A patient with mild systemic disease. After reviewing the risks and benefits, the patient was deemed in satisfactory condition to undergo the procedure. The anesthesia plan was to use monitored anesthesia care (MAC). Immediately prior to administration of medications, the patient was re-assessed for adequacy to receive sedatives. The heart rate, respiratory rate, oxygen saturations, blood pressure, adequacy of pulmonary ventilation, and response to care were monitored throughout the procedure. The physical status of the patient was re-assessed after the procedure. The Colonoscope was introduced through the anus and advanced to the cecum, identified by appendiceal orifice and ileocecal valve. The colonoscopy was performed without difficulty. The patient tolerated the procedure well. The quality of the bowel preparation was good. Findings: Hemorrhoids were found on perianal exam. The colon (entire examined portion) appeared normal. Impression: - Hemorrhoids found on perianal exam. - The entire examined colon is normal. - No specimens collected. Recommendation: - Discharge patient to home. - Resume previous diet. - Continue present medications. Procedure Code(s): --- Professional --- 09683, Colonoscopy, flexible; diagnostic, including collection of specimen(s) by brushing or washing, when performed (separate procedure) Diagnosis Code(s): --- Professional --- K64.9, Unspecified hemorrhoids R10.13, Epigastric pain R19.4, Change in bowel habit CPT copyright 2019 [employer]. All rights reserved. The codes documented in this report are preliminary and upon outpatient coder review may be revised to meet current compliance requirements. Juventino Linares MD Juventino Linares MD 03/18/2021 11:25:23 AM Electronically signed by Juventino Linares MD Number of Addenda: 0 Note Initiated On: 03/18/2021 10:07 AM Estimated Blood Loss: Estimated blood loss: none.
== END 2021-03-18 11:20 | disposition home or self-care (01) ==
LOC: M OPP 08:21
PROVIDERS: ATTEND Surgery
DX: K64.8 Other hemorrhoids (principal); R10.13 Epigastric pain; R19.4 Change in bowel habit; K31.7 Polyp of stomach and duodenum; Z88.5 Allergy status to narcotic agent; Z88.8 Allergy status to other drugs, medicaments and biological substances; Z87.891 Personal history of nicotine dependence
CPT/HCPCS: 43235; 45378; J3010

== ENCOUNTER → 2022-01-27 | Outpatient (CLI) | payer BC, OTHER ==
[~2022-01-27] MED LIST changes: -NS 1,000 ML IV ONE
[2022-01-27 14:00] LABS: HEMATOCRIT 46.8 % (36.0-47.0); HEMOGLOBIN 15.2 g/dl (12.0-15.5); MEAN CORPUSCULAR HEMOGLOBIN 33.5 pg (27.0-33.0); MEAN CORPUSCULAR HGB CONC 32.5 g/dl (32.0-36.5); MEAN CORPUSCULAR VOLUME 103.1 fl (80.0-96.0); PLATELET COUNT, AUTOMATED 136 10^3/uL (150-450); RED BLOOD COUNT 4.54 10^6/uL (4.00-5.40); WHITE BLOOD COUNT 5.2 10^3/uL (4.0-10.0)
[2022-01-27 14:03] LABS: INR 0.92; PROTHROMBIN TIME 12.8 SECONDS (12.7-14.5)
[2022-01-27 14:04] LABS: PARTIAL THROMBOPLASTIN TIME 30.3 SECONDS (25.9-37.0)
[2022-01-27 14:38] LABS: ALBUMIN 3.8 GM/DL (3.2-5.2); ALT/SGPT 28 U/L (12-78); BILIRUBIN,TOTAL 0.4 MG/DL (0.2-1.0); BLOOD UREA NITROGEN 15 MG/DL (7-18); CALCIUM LEVEL 9.6 MG/DL (8.8-10.2); CARBON DIOXIDE LEVEL 28 MEQ/L (21-32); CHLORIDE LEVEL 110 MEQ/L (98-107); CHOLESTEROL LEVEL 271 MG/DL (<200); CHOLESTEROL RISK RATIO 2.765 (<5); CREATININE FOR GFR 0.77 MG/DL (0.55-1.30); GLOMERULAR FILTRATION RATE > 60.0 (>45); GLUCOSE, FASTING 102 MG/DL (70-100); HDL CHOLESTEROL 98 MG/DL (>40); LDL CHOLESTEROL 154 MG/DL (<100); NON-HDL-C 173 MG/DL; POTASSIUM SERUM 4.6 MEQ/L (3.5-5.1); SODIUM LEVEL 142 MEQ/L (136-145); TOTAL PROTEIN 6.7 GM/DL (6.4-8.2); TRIGLYCERIDES LEVEL 96 MG/DL (<150)
[2022-01-27 15:21] LABS: HEMOGLOBIN A1c 5.4 %
== END ==
LOC: M PLALAB 11:24
PROVIDERS: ATTEND Family Medicine
DX: R73.03 Prediabetes (principal); Z78.9 Other specified health status; E78.5 Hyperlipidemia, unspecified

== ENCOUNTER → 2022-02-16 | Outpatient (CLI) | payer BC, OTHER | LOC: M WHC 07:47 | PROVIDERS: ATTEND Family Medicine | DX: Z12.31 Encounter for screening mammogram for malignant neoplasm of breast (principal); R93.2 Abnormal findings on diagnostic imaging of liver and biliary tract ==

== ENCOUNTER → 2023-10-28 | Outpatient (CLI) | payer BC, OTHER ==
[~2023-10-28] MED LIST changes: -MIRA1POW3 PO; +MIRA33506 PO; +SENN-186 PO; -SENN-80 PO
== END ==
LOC: M WUC 08:34
PROVIDERS: ATTEND Physician Assistant
DX: Z48.89 Encounter for other specified surgical aftercare (principal)

== ENCOUNTER → 2024-03-17 | Outpatient (CLI) | payer MEDICARE, BC ==
[~2024-03-17] MED LIST changes: -CYCL5TAB PO; +CYCL5TAB4 PO; +OMEP-611 PO; -OMEP20TA2 PO
== END ==
LOC: M WUC 11:26
PROVIDERS: ATTEND Nurse Practitioner Family
DX: R07.82 Intercostal pain (principal); J98.11 Atelectasis; J84.10 Pulmonary fibrosis, unspecified; Z98.1 Arthrodesis status; Z91.81 History of falling

== ENCOUNTER → 2025-03-08 | Outpatient (CLI) | payer MEDICARE, BC ==
[2025-03-08 16:53] LABS: PLATELET COUNT, AUTOMATED 160 10^3/uL (150-450)
[2025-03-08 17:11] LABS: INR 0.95
[2025-03-08 17:46] LABS: ALT/SGPT 28.0 U/L (7.0-40); AST/SGOT 28.0 U/L (<34); CALCIUM LEVEL 10.0 MG/DL (8.3-10.6); CARBON DIOXIDE LEVEL 27.0 MMOL/L (20-31); CHLORIDE LEVEL 108.0 MMOL/L (98-107); CHOLESTEROL LEVEL 309.0 MG/DL (<200); CHOLESTEROL RISK RATIO 3.45 (<5); CREATININE FOR GFR 0.79 MG/DL (0.55-1.30); GLOMERULAR FILTRATION RATE 82.5 (>45); LDL CHOLESTEROL 186.8 MG/DL (<100); NON-HDL-C 219.6 MG/DL; POTASSIUM SERUM 4.4 MMOL/L (3.5-5.1); SODIUM LEVEL 144.0 MMOL/L (136-145); TRIGLYCERIDES LEVEL 164.0 MG/DL (<150)
[2025-03-08 17:53] LABS: ESTIMATED AVERAGE GLUCOSE 114.0 MG/DL (60-110)
== END ==
LOC: M PLAIMG 16:01
PROVIDERS: ATTEND Family Medicine
DX: Z78.9 Other specified health status (principal); E78.5 Hyperlipidemia, unspecified; R73.03 Prediabetes; M54.2 Cervicalgia; K70.9 Alcoholic liver disease, unspecified

== ENCOUNTER → 2025-04-06 | Outpatient (CLI) | payer MEDICARE, BC ==
[~2025-04-06] MED LIST changes: +ISOVUE-370 76% 100 ML VIAL As Ordered ONE
== END ==
LOC: M RAD 15:51
PROVIDERS: ATTEND Family Medicine
DX: R10.31 Right lower quadrant pain (principal); C49.4 Malignant neoplasm of connective and soft tissue of abdomen; J84.10 Pulmonary fibrosis, unspecified; K80.20 Calculus of gallbladder without cholecystitis without obstruction; K57.90 Diverticulosis of intestine, part unspecified, without perforation or abscess without bleeding; R14.0 Abdominal distension (gaseous)
CPT/HCPCS: 74177; Q9967